=== PATIENT | male | born 1975 | race Caucasian/White ===

== ENCOUNTER 2016-07-12 03:26 | Inpatient (IN) | payer MEDICARE, OTHER ==
[~2016-07-12] VITALS: Ht 172.7 cm; Wt 91.3 kg
[~2016-07-12 03:26] MED LIST: AMBI10TA PO; AMPH5CAP PO; DEPA500T2 PO; EFFE150C PO; EFFE75CA75 PO; FOLI1TAB2 PO; MELO15TA4 PO; TRAZ50TA4 PO; VITMTA PO; XANA0.5T PO
[2016-07-12] MEDS ORDERED: HALOPERIDOL 5 MG/ML VIAL (J1630) As Ordered ONE ×2 (03:27→09:00)
[2016-07-12] MEDS ORDERED: diphenhydrAMINE INJ 50MG/ML VIAL (J1200) As Ordered ONE ×2 (03:27→09:00)
[2016-07-12] MEDS ORDERED: OLANZapine INTRAMUSCULAR 10 MG VIAL (S0166) As Ordered ONE (04:44)
[2016-07-12 05:33] LABS: MEAN CORPUSCULAR HEMOGLOBIN 29.4 pg (27.0-33.0); MEAN CORPUSCULAR VOLUME 91.7 fl (80.0-96.0); RED CELL DISTRIBUTION WIDTH 12.4 % (11.5-14.5); WHITE BLOOD COUNT 12.2 K/mm3 (4.0-10.0)
[2016-07-12 05:56] LABS: ALBUMIN 4.2 GM/DL (3.2-5.2); ALBUMIN/GLOBULIN RATIO 1.02 (1.00-1.93); ALKALINE PHOSPHATASE 118 U/L (45-117); ALT/SGPT 37 U/L (12-78); ANION GAP 13 MEQ/L (8-16); AST/SGOT 19 U/L (15-37); BILIRUBIN,DIRECT 0.1 MG/DL (0.0-0.2); BILIRUBIN,TOTAL 0.4 MG/DL (0.2-1.0); BLOOD UREA NITROGEN 7 MG/DL (7-18); CALCIUM LEVEL 8.9 MG/DL (8.5-10.1); CARBON DIOXIDE LEVEL 24 MEQ/L (21-32); CHLORIDE LEVEL 105 MEQ/L (98-107); CREATININE FOR GFR 0.72 MG/DL (0.70-1.30); GLOMERULAR FILTRATION RATE > 60.0 (>60); GLUCOSE, FASTING 122 MG/DL (70-105); POTASSIUM SERUM 3.7 MEQ/L (3.5-5.1); SODIUM LEVEL 142 MEQ/L (136-145); TOTAL PROTEIN 8.3 GM/DL (6.4-8.2)
[2016-07-12 17:02] LABS: AMPHETAMINES LEVEL URINE NEGATIVE (NEGATIVE); BENZODIAZEPINES URINE NEGATIVE (NEGATIVE); COCAINE METABOLITE URINE NEGATIVE (NEGATIVE); CONTROL LINE INT CTR LINE PRESENT; METHADONE URINE NEGATIVE (NEGATIVE); OPIATES URINE NEGATIVE (NEGATIVE); TRICYCLIC ANTIDEPRESS URINE NEGATIVE (NEGATIVE)
[2016-07-12] MEDS ORDERED: traZODone 50 MG TAB PO PRN (17:45)
[2016-07-12] MEDS ORDERED: ACETAMINOPHEN TAB 650MG DOSE (2X325MG) PO PRN (17:45)
[2016-07-12] MEDS ORDERED: LORazepam 2 MG TAB PO PRN (17:45)
[2016-07-12] MEDS ORDERED: MOM 30ML SUSPENSION UDC PO PRN (17:45)
[2016-07-12] MEDS ORDERED: MAALOX 30 ML SUSP *UDC PO PRN (17:45)
--- NOTE | 2016-07-12 18:05 | EDDOCDS ---
Physician Documentation [facility] Name: Curt Hardwick Age: 40 yrs Sex: Male : 1975 Arrival Date: 07/12/2016 Time: 03:26 Bed OBSERVATION Private MD: Disposition: 07/12/16 17:57 Hospitalization ordered by Julian Salcido for Inpatient Admission. Preliminary diagnosis is Bipolar disorder. - Bed requested for Admit. - Status is Inpatient Admission. mk4 - Condition is Stable. - Problem is new. - Symptoms have improved. Historical: - Allergies: no known allergies; - Home Meds: 1. Synthroid 125 mcg Oral tab 1 tab once daily (Last dose: 07/11/2016 06:00) 2. Effexor Oral 300 mg every morning (Last dose: 07/11/2016 09:00) 3. clonidine HCl 0.1 mg Oral tab 1 tab daily 4. lorazepam 1 mg Oral tab daily (Last dose: 07/11/2016 09:00) 5. [place] Carbonate 950 Oral 1 cap pm (Last dose: 07/11/2016 21:00) 6. clonidine HCl 0.3 mg Oral tab 1 tab nightly (Last dose: 07/11/2016 21:00) 7. lorazepam 1 mg Oral tab 1 tab nightly (Last dose: 07/11/2016 21:00) - Social history: No barriers to communication noted, The patient speaks fluent Yi, Smoking status: Patient uses tobacco products, current some day smoker. - Family history: Not pertinent. - : The pt / caregiver states he / she is not on anticoagulants. Home medication list is obtained from family members. - Exposure Risk Screening:: None identified. Vital Signs: 07/12 03:40 slm 04:10 BP 129 / 80; Pulse 92; Resp 18; Pulse Ox 97% ; Pain 0/10; slm 04:25 BP 124 / 77; Pulse 92; Resp 16; Temp 97.6(TE); Pulse Ox 99% on R/A; slm 04:40 BP 137 / 90; Pulse 90; Resp 16; Pulse Ox 97% ; slm 04:58 BP 133 / 78; Pulse 94; Resp 16; Pulse Ox 97% ; slm 05:10 BP 122 / 71; Pulse 82; Resp 18; Pulse Ox 94% ; slm 05:26 BP 119 / 69; Pulse 69; Resp 18; Pulse Ox 93% ; slm 05:34 BP 136 / 87; Pulse 67; Resp 18; Pulse Ox 100% on R/A; slm 09:05 BP 184 / 101; Pulse 118; Resp 22; mk4 09:15 BP 162 / 100; Pulse 117; Resp 18; Pulse Ox 100% on R/A; mk4 09:30 BP 144 / 94; Pulse 102; Resp 18; Pulse Ox 100% ; mk4 09:43 BP 158 / 96; Pulse 102; Resp 16; Pulse Ox 100% on R/A; mk4 10:00 BP 140 / 92; Pulse 99; Resp 18; Pulse Ox 100% ; mk4 10:15 BP 154 / 93; Pulse 99; Resp 16; Temp 97.8(T); Pulse Ox 100% ; mk4 10:30 BP 149 / 96; Pulse 106; Resp 18; Pulse Ox 100% ; mk4 10:45 BP 155 / 96; Pulse 95; Resp 18; Pulse Ox 100% on R/A; mk4 11:00 BP 160 / 63; Pulse 95; Resp 18; Pulse Ox 99% on R/A; mk4 11:15 BP 175 / 83; Pulse 106; Resp 18; Pulse Ox 100% on R/A; mk4 11:30 BP 141 / 97; Pulse 99; Resp 18; Pulse Ox 99% on R/A; mk4 11:45 BP 144 / 91; Pulse 99; Resp 18; mk4 12:00 BP 146 / 93; Pulse 89; Resp 18; Pulse Ox 99% on R/A; mk4 12:15 BP 199 / 93; Pulse 86; Resp 18; Pulse Ox 100% on R/A; mk4 12:30 BP 164 / 92; Pulse 92; Resp 18; Pulse Ox 100% on R/A; mk4 12:45 BP 159 / 92; Pulse 87; Resp 18; Pulse Ox 100% on R/A; mk4 13:00 BP 143 / 95; Pulse 87; Pulse Ox 99% on R/A; mk4 13:15 BP 144 / 93; Pulse 76; Resp 18; Pulse Ox 100% on R/A; mk4 13:30 BP 169 / 99; Pulse 86; Resp 18; Pulse Ox 99% on R/A; mk4 14:15 BP 162 / 100; Pulse 88; Resp 18; Pulse Ox 99% on R/A; mk4 17:43 BP 138 / 86; Pulse 92; Resp 20; Temp 97.2(T); Pulse Ox 99% on R/A; mk4 03:40 pt combative refused slm MDM: 03:32 -Haloperidol Lactate 5 mg IM once ordered. sls1 03:33 diphenhydrAMINE 50 mg IM once ordered. sls1 04:17 Consult PFS/PSA/Shower Room Attendant ordered. cs11 04:17 Consult PFS/PSA/Shower Room Attendant: Patient's case requires discussion with on-call cs11 Psychiatrist ordered. 04:17 PSA/PFS to call Nursing Performance Test Consultant, to enter patient data on [facility] Safe Act if patient cs11 involuntarily admitted or transferred for SI or HI ordered. 04:17 Confirm accurate psychiatric medication list and times of last dosage ordered. cs11 04:17 Detain Pt Until Medically/PFS Cleared ordered. cs11 04:17 Restraints, Adult: Mechanical - 4 points up to 1 hr (poses imminent danger of harming cs11 others). May use manual restraints to secure restraint devices. Pt. monitoring per RN policy. ordered. 04:18 Acetaminophen Level Ordered. EDMS 04:19 Basic Metabolic Profile Ordered. EDMS 04:19 Complete Blood Count Ordered. EDMS 04:19 Drug Eval Toxicology ED Only Ordered. EDMS 04:19 Ethyl Alcohol (ethanol) Ordered. EDMS 04:19 Liver Profile Ordered. EDMS 04:19 Salicylate Level Ordered. EDMS 04:19 Thyroid Stimulating Hormone Ordered. EDMS 04:19 Valproic Acid (depakote) Ordered. EDMS 04:19 Ammonia ([place] Tube on Ice, Not [place]) Ordered. EDMS 04:25 OLANZapine 10 mg IM once ordered. cs11 07:52 Financial registration complete. hs2 07:53 [facility] Payment Agreement was scanned into [employer] and attached to record. hs2 08:54 PSA/PFS to call Nursing Performance Test Consultant, to enter patient data on [place] Safe Act if patient mk4 involuntarily admitted or transferred for SI or HI complete. 09:05 diphenhydrAMINE 25 mg IM once ordered. mk4 09:05 -Haloperidol Lactate 5 mg IM once ordered. mk4 09:06 Restraints, Adult: Chemical - Meds as ordered (poses imminent danger of harming fg others). May use manual restraints to ensure safe admin. of meds. Pt. monitoring for min. of 2 hrs per RN policy. ordered. 09:06 Restraints, Adult: Mechanical - 4 points up to 1 hr (poses imminent danger of fg interfering with medical interventions). May use manual restraints to secure restraint devices. Pt. monitoring per RN policy. ordered. 10:23 Consult PFS/PSA/Shower Room Attendant: Patient's case requires discussion with on-call mk4 Psychiatrist complete. 10:23 Consult PFS/PSA/Shower Room Attendant complete. mk4 11:08 REGULAR DIET PLASTIC CHUA+DIET ordered. EDMS 16:35 Haloperidol 5 mg IVP once; until desired response ordered. fg 16:35 diphenhydrAMINE 25 mg IM once ordered. fg 17:15 REGULAR DIET PLASTIC CHUA+DIET ordered. EDMS 17:49 REGULAR DIET ordered. EDMS 17:51 Admit to IMHU: ordered. EDMS 17:54 [facility] Legal paperwork was scanned into [employer] and attached to record. ml4 Administered Medications: 03:34 Drug: -Haloperidol Lactate 5 mg [haloperidol lactate 5 mg/mL injection solution (1 mL)] sls1 Route: IM; Site: left vastus lateralis; 03:34 Drug: diphenhydrAMINE 50 mg [diphenhydramine 50 mg/mL injection solution (1 mL)] Route: sls1 IM; Site: right vastus lateralis; 04:43 Follow up: Response: No significant change. [facility] 04:53 Drug: OLANZapine 10 mg Route: IM; Site: left vastus lateralis; [facility] 05:28 Follow up: Response: Anxiety is improved [facility] 09:05 Drug: diphenhydrAMINE 25 mg [diphenhydramine 50 mg/mL injection solution (0.5 mL)] mk4 Route: IM; Site: right vastus lateralis; 09:05 Drug: -Haloperidol Lactate 5 mg [haloperidol lactate 5 mg/mL injection solution (1 mL)] mk4 Route: IM; Site: right vastus lateralis; Signatures: Dispatcher [employer] EDMS Cathy Lopez, PSA PSA ml4 Melissa Alberto, RN RN sls1 Vj Norman, DO cs11 Yulia Chavez LPN LPN m Selam Turner RN RN mk4 Keke Nunez MD MD fg Lili Guerrero, Reg Reg hs2 The chart was reviewed and I authenticate all verbal orders and agree with the evaluation and treatment provided.Corrections: (The following items were deleted from the chart) 09:06 09:06 Restraints, Adult: Mechanical - 4 points up to 1 hr (poses imminent danger of mk4 self-harm). May use manual restraints to secure restraint devices. Pt. monitoring per RN policy. ordered. mk4 Attachments: 07:53 [facility] Payment Agreement hs2 MTDD
--- NOTE | 2016-07-12 18:06 | EDDOCDS ---
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 nn1 Mental Health Triage Level: Level 2: The patient displays active suicidal ideations. The patient displays active homicidal ideations. The patient was brought to the ED for evaluation because of a legal pickup order. The patient is visibly agitated and appears to be potentially at risk. Adult Sepsis Screening: The patient does not have new or worsening altered mentation. Patient's respiratory rate is less than 22. Systolic blood pressure is greater than 100. Patient has a qSOFA score of 0- Negative Sepsis Screen. Suicide/Homicide risk assessment- The patient admits to and/or has been reported to be having suicidal ideations. Status: Patient is not a radiology services manager or dependent. Transition of care: patient was not received from another setting of care. 03:36 Acuity: [place] Level 3 nn1 03:36 Method Of Arrival: Police Car nn1 Triage Assessment: 03:39 General: Appears distressed, unkempt, Behavior is restless, combative, uncooperative. nn1 Pain: Unable to use pain scale. Patient appears agitated, restless. Pt Declines HIV testing. The patient is triaged at the bedside. See Assessment in Nurses Notes section of ED record. Neurological: Level of Consciousness is awake, alert, obeys commands, Oriented to person, place, time, Moves all extremities. Facial symmetry appears normal. Respiratory: Airway is patent Respiratory effort is even, unlabored, Respiratory pattern is regular. GI: Abdomen is non- distended. Derm: Skin is pink, warm & dry. Historical: - Allergies: no known allergies; - Home Meds: 1. Synthroid 125 mcg Oral tab 1 tab once daily (Last dose: 07/11/2016 06:00) 2. Effexor Oral 300 mg every morning (Last dose: 07/11/2016 09:00) 3. clonidine HCl 0.1 mg Oral tab 1 tab daily 4. lorazepam 1 mg Oral tab daily (Last dose: 07/11/2016 09:00) 5. [place] Carbonate 950 Oral 1 cap pm (Last dose: 07/11/2016 21:00) 6. clonidine HCl 0.3 mg Oral tab 1 tab nightly (Last dose: 07/11/2016 21:00) 7. lorazepam 1 mg Oral tab 1 tab nightly (Last dose: 07/11/2016 21:00) - Social history: No barriers to communication noted, The patient speaks fluent Korean, Smoking status: Patient uses tobacco products, current some day smoker. - Family history: Not pertinent. - : The pt / caregiver states he / she is not on anticoagulants. Home medication list is obtained from family members. - Exposure Risk Screening:: None identified. Screenin:41 Screening information is obtained from the patient. Fall risk: No risks identified. mk4 Assistance ADL's: requires no assistance with activities of daily living. Abuse/DV Screen: The patient / caregiver reports he/she is: not in a situation that causes fear, pain or injury. Nutritional screening: No deficits noted. home support is adequate. 17:07 Advance Directives: Currently, there is no health care proxy. There is no active DNR mk4 order. There is no living will. There is no Power of Tar Distributor Operator. Advance directive information has not previously been placed in an [facility] medical record. Further advance directive information is declined. Assessment: 03:33 General: Pt agitated not cooperating, threatening and yelling at staff, attempting to sls1 bite staff, provider aware and pt medicated per order, police at bedside. 03:41 General: Patient yelling and threatening PD and staff, patient redirected several nn1 times, limitations set. Patient continued to be uncooperative. . 03:58 General: Appears Behavior is agitated, restless, combative, uncooperative. General: pt slm resistive to care remains combative refused v/s at this time . Respiratory: Airway is patent Respiratory effort is even, unlabored. 05:36 General: Appears in no apparent distress, Behavior is drowsy. General: pt appears slm drowsy awakes to verbal stimuli meds with effect at this time . will cont to monitor . Respiratory: Airway is patent Respiratory effort is even, unlabored. 06:15 General: Appears in no apparent distress, comfortable, to be sleeping. Behavior is slm drowsy. General: pt asleep at this time will cont to monitor security observing . Neurological: Respiratory: Airway is patent Respiratory effort is even, unlabored. 07:09 General: Appears in no apparent distress, comfortable, to be sleeping. Behavior is slm drowsy, quiet. General: pt remains asleep security observing safety maintained . Respiratory: Airway is patent Respiratory effort is even, unlabored. Derm: Skin is pink, warm & dry. 08:02 General: Appears in no apparent distress, comfortable, to be sleeping. Behavior is slm quiet. General: security observing . Respiratory: Airway is patent Respiratory effort is even, unlabored, Respiratory pattern is regular. 08:53 General: Appears in no apparent distress, comfortable, to be sleeping. mk4 09:00 General: Appears distressed, pt jumped off stretcher, went into bathroom and stripped mk4 naked, came out of bathroom yelling and swung his arm with closed fist at security aide, code 25 called and pt put back in restraints. 09:29 General: Appears Behavior is agitated, singing loudly , inaapropriate songs and mk4 laughing maniacally,. Respiratory: Airway is patent Respiratory effort is even, unlabored, Respiratory pattern is regular. 10:17 General: Appears in no apparent distress, to be sleeping. awakens when i enter thr room mk4 and starts singing loudly and laughing then returns to sleep. 10:54 General: Appears singing Joanna zarco , and told myself he was going to "slit my mk4 face wide open " remains in 4 pt restraints resisting pulse oximeter. 12:30 General: Appears in no apparent distress, to be sleeping. mk4 13:30 General: Appears Behavior is agitated. Respiratory: Airway is patent Respiratory effort mk4 is even, unlabored, Respiratory pattern is regular. 14:31 General: Appears in no apparent distress, leg restraints removed,pt calm . mk4 15:07 General: restraints d/c. mk4 15:40 General: Appears in no apparent distress, comfortable, Behavior is cooperative, mk4 sleeping on side . Respiratory: Airway is patent Respiratory effort is even, unlabored, Respiratory pattern is regular. 16:00 General: Appears pt agitated came out of room refused initially to return to room mk4 security called and pt eventually returned to room, drinking young linda. 17:06 General: Appears in no apparent distress, comfortable, Behavior is cooperative. mk4 Respiratory: Airway is patent Respiratory effort is even, unlabored, Respiratory pattern is regular. 17:35 General: Appears in no apparent distress, comfortable, Behavior is cooperative. mk4 17:43 General: Appears in no apparent distress, to be sleeping. cooperative when awakened for mk4 vital signs . Mental Health Eval: 03:46 Referral Information: Evaluation referral is generated by a police agency: [facility] on cl 9.41.. The patient was referred for evaluation because Pt with bizarre/manic type behavior per spouse, religiously preoccupied, verbally aggressive. Pt has hx of Bipolar d/o and prior admissions to [facility], pt reportedly may have been drinking tonight as well. Pt agitated on arrival, verbally threatening to ED staff and Police, required IM meds and 4 pt. restraints.. 15:50 Mental health consult is initiated at 15:50. Status: . [facility] Behavioral ca Health: The patient is not an established patient of [facility] Behavioral Health. Subjective: Subjective: The patients chief complaint is Pt agitated upon presentation and required restraints. Was intoxicated and manic. Delusions are unknown, unable to evaluate. Patient's mood is anxious, elevated, hallucinations are unknown, unable to evaluate. Spoke with pt's regarding circumstances that required police transporting pt to ED last night. She reports pt has been decompensating since 07/01. Had emergency appt with his psychiatrist yesterday and it was recommended pt be given prn haldol and seroquel, po, per . She said pt refused to take these meds last night, however he did take his regular medications. Pt has not been sleeping or eating properly. She found him screaming at top of his lungs last night that he "felt good" and talking about a math problem he seemed to be fixated on, as well as [place] Don[place]. Later that night the found pt vomiting and 3 open wine bottles on floor. Pt had apparently broken the top off one of the bottles. Pt's feels he requires admission and does not feel he is safe to return home. 16:30 Mental Health history: alcohol abuse, depression, psychosis, sleep disturbance, Mental ca Health Admissions: most recently at [facility] 2014 Current Outpatient Mental Health Services: Psychiatrist / Agency: Rubina Barkley. Sees monthly. [phone]. Current living environment is Family / Home Support: Resides with supportive in own home. Patient presents to Emergency Department with the following symptoms within the past 2 weeks: alcohol abuse, delusions of grandeur, labile mood, poor impulse control, posttraumatic stress related to unknown. psychosis, sleep disturbance - insomnia. Substance abuse: Patient uses of alcohol. Mental status exam: Patients appearance is appropriate, Patient's behavior is agitated, bizarre, uncooperative, Speech is pressured. rapid. Affect is labile. Mood is angry. anxious. irritable. Hallucinations are unable to evaluate . Appetite is unable to evaluate Energy level is Restless Content of thought is paranoid Thought process is loose. Cognitive level is oriented to person, place, time and situation Patient's insight is poor. Judgement is poor. Rapport with interviewer is hostile. unable to evaluate for SI or HI. Disposition: Medically cleared for disposition by Vj Norman DO Psychiatric Consult is performed by phone with Dr Julian Salcido. [facility] Admission Criteria: The patient displays symptoms of severe psychiatric disorder resulting in disordered behavior and significant interference with his / her ability to maintain self care. Lucille. The patient requires continuous observation and/or control to protect self, others or property. The patient's care requires a multi-modal treatment plan under close supervision and coordination due to the complexity and severity of the patient's symptoms. The patient requires administration and monitoring of psychoactive medications by skilled medical providers due to the side effects of the psychoactive medications or significant dosage adjustments. Legal Status: Patient's legal status will be Emergency admission: . MD Safe Act: [facility] Safe Act is applicable to this patient. The patient poses a risk to self or other and the Nursing Intermediate Manager has been notified. He/She will enter the patient's data. DSM-V Differential Diagnosis: Bipolar II Disorder (F31.81) Current or most recent episode manic, Alcohol Intoxication. Insurance Pre-Certification: Not Required, Pt has Medicare and [employer]. Awaiting: transfer to [facility]. Vital Signs: 03:40 slm 04:10 BP 129 / 80; Pulse 92; Resp 18; Pulse Ox 97% ; Pain 0/10; slm 04:25 BP 124 / 77; Pulse 92; Resp 16; Temp 97.6(TE); Pulse Ox 99% on R/A; slm 04:40 BP 137 / 90; Pulse 90; Resp 16; Pulse Ox 97% ; slm 04:58 BP 133 / 78; Pulse 94; Resp 16; Pulse Ox 97% ; slm 05:10 BP 122 / 71; Pulse 82; Resp 18; Pulse Ox 94% ; slm 05:26 BP 119 / 69; Pulse 69; Resp 18; Pulse Ox 93% ; slm 05:34 BP 136 / 87; Pulse 67; Resp 18; Pulse Ox 100% on R/A; slm 09:05 BP 184 / 101; Pulse 118; Resp 22; mk4 09:15 BP 162 / 100; Pulse 117; Resp 18; Pulse Ox 100% on R/A; mk4 09:30 BP 144 / 94; Pulse 102; Resp 18; Pulse Ox 100% ; mk4 09:43 BP 158 / 96; Pulse 102; Resp 16; Pulse Ox 100% on R/A; mk4 10:00 BP 140 / 92; Pulse 99; Resp 18; Pulse Ox 100% ; mk4 10:15 BP 154 / 93; Pulse 99; Resp 16; Temp 97.8(T); Pulse Ox 100% ; mk4 10:30 BP 149 / 96; Pulse 106; Resp 18; Pulse Ox 100% ; mk4 10:45 BP 155 / 96; Pulse 95; Resp 18; Pulse Ox 100% on R/A; mk4 11:00 BP 160 / 63; Pulse 95; Resp 18; Pulse Ox 99% on R/A; mk4 11:15 BP 175 / 83; Pulse 106; Resp 18; Pulse Ox 100% on R/A; mk4 11:30 BP 141 / 97; Pulse 99; Resp 18; Pulse Ox 99% on R/A; mk4 11:45 BP 144 / 91; Pulse 99; Resp 18; mk4 12:00 BP 146 / 93; Pulse 89; Resp 18; Pulse Ox 99% on R/A; mk4 12:15 BP 199 / 93; Pulse 86; Resp 18; Pulse Ox 100% on R/A; mk4 12:30 BP 164 / 92; Pulse 92; Resp 18; Pulse Ox 100% on R/A; mk4 12:45 BP 159 / 92; Pulse 87; Resp 18; Pulse Ox 100% on R/A; mk4 13:00 BP 143 / 95; Pulse 87; Pulse Ox 99% on R/A; mk4 13:15 BP 144 / 93; Pulse 76; Resp 18; Pulse Ox 100% on R/A; mk4 13:30 BP 169 / 99; Pulse 86; Resp 18; Pulse Ox 99% on R/A; mk4 14:15 BP 162 / 100; Pulse 88; Resp 18; Pulse Ox 99% on R/A; mk4 17:43 BP 138 / 86; Pulse 92; Resp 20; Temp 97.2(T); Pulse Ox 99% on R/A; mk4 03:40 pt combative refused sl Vitals: 04:32 Log In time N/A- police car arrival. [facility] ED Course: 03:27 Patient visited by Nela Kessler. [facility] 03:27 Patient moved to Waiting [facility] 03:27 Patient moved to [address] 03:37 Triage Initiated nn1 03:44 Yulia Chavez LPN is Primary Nurse. [facility] 04:04 Patient visited by Jamar Choi. mas 04:04 Pt greeted and oriented to ED. Patient advised of names of staff involved in care, mas location of call ramirez, wait times and NPO status. Accompanied by Law Enforcement, Bed in low position. Call light in reach. Side rails up X2. Security observing. Door closed. Noise minimized. Moved to private room. Verbal reassurance given. Psych Safety Check: Location: Psych Room. Visual Assessment: agitated, uncooperative \\T\\ this time. 04:15 Patient visited by Yulia Chavez LPN. [facility] 04:17 Vj Norman DO is Attending Physician. cs11 04:17 Patient visited by Vj Norman DO. cs11 04:25 Patient moved to OBSERVATION cs11 04:44 Patient visited by Jamar Choi. mas 04:44 Property secured in secure belongings bag, Secure bag Number [id number], placed in ED safe.mas 05:00 Patient visited by Jamar Choi. mas 05:15 Patient visited by Jamar Choi. mas 05:23 No IV's were initiated during this patient's visit. No procedures done that require slm assistance. Labs drawn. (by ED staff). Sent per order to lab. 05:28 Ammonia ([place] Tube on Ice, Not [place]a [place]) Sent. slm 05:28 Valproic Acid (depakote) Sent. slm 05:28 Acetaminophen Level Sent. slm 05:28 Basic Metabolic Profile Sent. slm 05:28 Complete Blood Count Sent. slm 05:28 Drug Eval Toxicology ED Only Sent. slm 05:28 Ethyl Alcohol (ethanol) Sent. slm 05:28 Liver Profile Sent. slm 05:28 Salicylate Level Sent. slm 05:29 Thyroid Stimulating Hormone Sent. slm 05:37 Patient visited by Yulia Chavez LPN. slm 05:39 Patient visited by Jamar Choi. mas 05:45 Patient visited by Jamar Choi. mas 06:00 Patient visited by Jamar Choi. mas 06:15 Patient visited by Jamar Choi. mas 06:16 Patient visited by Yulia Chavez LPN. slm 06:30 Patient visited by Jamar Choi. mas 06:45 Patient visited by Jamar Choi. mas 07:05 Patient visited by Jamar Choi. mas 07:09 Primary Nurse role handed off by Yulia Chavez LPN mcp 07:09 Patient visited by Yulia Chavez LPN. slm 07:22 Patient visited by Indra Resendiz Security Aide. pjf 07:36 Patient visited by Indra Resendiz Security Aide. pjf 07:44 Patient visited by Indra Resendiz Security Aide. pjf 07:53 [facility] Payment Agreement was scanned into [employer] and attached to record. hs2 08:02 Patient visited by Yulia Chavez LPN. slm 08:06 Patient visited by Indra Resendiz Security Aide. pjf 08:29 Patient visited by Indra Resendiz Security Aide. pjf 08:45 Psych Safety Check: Location: Psych Room. Visual Assessment: Agitated, Combative. pjf 09:00 Psych Safety Check: Location: Psych Room. Visual Assessment: Restless, Medicated. pjf 09:14 Psych Safety Check: Location: Psych Room. Visual Assessment: Restless, Medicated. pjf 09:21 Patient visited by Ferendzo, Indra, Security Aide. pjf 09:39 Patient visited by Indra Resendiz Security Aide. pjf 10:01 Patient visited by Indra Resendiz Security Aide. pjf 10:22 Patient visited by Indra Resendiz Security Aide. pjf 10:35 Patient visited by Indra Resendiz Security Aide. pjf 10:54 Psych Safety Check: Location: Psych Room. Visual Assessment: Restless, Agitated. pjf 11:05 Psych Safety Check: Location: Psych Room. Visual Assessment: Restless, Agitated. pjf 11:17 Psych Safety Check: Location: Psych Room. Visual Assessment: Restless, Agitated. pjf 11:39 Psych Safety Check: Location: Psych Room. Visual Assessment: Restless, Agitated. pjf 12:34 Patient visited by Philip Gregory. rn1 12:45 Patient visited by Philip Gregory. rn1 12:59 Patient visited by Philip Gregory. rn1 13:35 Patient visited by Indra Resendiz Security Aide. pjf 13:50 Patient visited by Indra Resendiz Security Aidhilaria. pjf 14:19 Patient visited by Indra Resendiz Security Aidhilaria. pjf 14:37 Patient visited by Indra Resendiz Security Aidhilaria. pjf 14:45 Psych Safety Check: Location: Psych Room. Visual Assessment: Cooperative. pjf 15:00 Psych Safety Check: Location: Psych Room. Visual Assessment: Cooperative. pjf 15:15 Psych Safety Check: Location: Psych Room. Visual Assessment: Cooperative. pjf 15:30 Psych Safety Check: Location: Psych Room. Visual Assessment: Cooperative. pjf 15:40 Patient visited by Selam Turner RN. mk4 15:45 Psych Safety Check: Location: Psych Room. Visual Assessment: Cooperative. pjf 15:56 Patient visited by Indra Resendiz Security Aidhilaria. pjf 16:00 Psych Safety Check: Location: Psych Room. Visual Assessment: Agitated. pjf 16:27 Patient visited by Indra Resendiz Security Aidhilaria. pjf 17:07 The patient / caregiver is instructed regarding the plan of care and ED course. mk4 17:15 Patient visited by Indra Resendiz Security Aidhilaria. pjf 17:28 Patient visited by Indra Resendiz Security Aide. pjf 17:42 Patient visited by Indra Resendiz Security Aide. pjf 17:54 [facility] Legal paperwork was scanned into [employer] and attached to record. ml4 17:57 Julian Salcido is Hospitalizing Provider. fg Restraints: 03:40 Restraint order obtained from Vj Norman DO [facility] 03:40 Implementation: The following less restrictive methods were implemented: decreased stimuli, administered meds to decrease agitation, Restrained without trying less restrictive methods because pt was physically combative, assaulting staff and/or others, self destructive, disoriented and harmful to self, The patient was given an explanation of the restraint protocol, the criteria for removal, their patient rights, Restraints applied at 03:40 Patient was restrained with chemical restraint, 4 point restraints. 03:40 Notification of restraint use: ED physician, Charge Nurse. 03:40 Vital Signs: 03:40 Assessment: Respirations: Regular Skin Integrity: Intact Circulation: Unrestricted. ROM: ROM exercises are contraindicated at this time. Hygiene: contraindicated, Toileting: contraindicated, Hydration: contrainidicated, Food: Contraindicated, Mental Status: Aggressive, Agitated, Uncooperative, Behavioral Interventions: Reorientation, Consistent Limits Set, Medication interventions are provided, Decreased Environmental Stimuli, Educated re need for restraints. 03:55 Vital Signs: Pt Refuses [facility] 03:55 Assessment: Respirations: Regular Skin Integrity: Intact Circulation: Unrestricted. ROM: ROM exercises are contraindicated at this time. Hygiene: contraindicated, Toileting: contraindicated, Hydration: contrainidicated, Food: Contraindicated, Mental Status: Aggressive, Agitated, Uncooperative, Behavioral Interventions: Pt is encouraged to verbalize feelings, Educated re need for restraints, Education provided on behavioral conditions for release of restraints. 04:10 Vital Signs: [facility] 04:10 Assessment: Respirations: Regular Skin Integrity: Intact Circulation: Unrestricted. ROM: ROM exercises are contraindicated at this time. Hygiene: refused, Toileting: refused, Hydration: offered, refused, Food: refused, Mental Status: Alert, Aggressive, Agitated, Uncooperative, pt swearing at staff "FUCK YOU", Behavioral Interventions: Consistent Limits Set, Educated re need for restraints. 04:25 Vital Signs: [facility] 04:25 Assessment: Respirations: Regular Skin Integrity: Intact Circulation: Unrestricted. ROM: ROM exercises are contraindicated at this time. Hygiene: contraindicated, refused, Toileting: contraindicated, refused, Hydration: contrainidicated, refused, Food: refused, Mental Status: Agitated, Uncooperative, Behavioral Interventions: Reorientation, Consistent Limits Set, Pt is encouraged to verbalize feelings. 04:40 Vital Signs: [facility] 04:40 Assessment: Respirations: Regular Skin Integrity: Intact Circulation: Unrestricted. ROM: Rom exercises of extremities are performed with release of limb. Left Lower Extremity, Hygiene: contraindicated, Toileting: offered, refused, Hydration: offered, refused, Food: Contraindicated, Mental Status: Alert, Agitated, Uncooperative, Behavioral Interventions: Education provided on behavioral conditions for release of restraints. 04:58 Vital Signs: [facility] 04:58 Assessment: Respirations: Regular Skin Integrity: Intact Circulation: Unrestricted. ROM: Rom exercises of extremities are performed with release of limb. Right Lower Extremity, Hygiene: contraindicated, Toileting: refused, Hydration: offered, refused, Food: Contraindicated, Mental Status: Agitated, Uncooperative, Behavioral Interventions: Consistent Limits Set, Support/Comfort provided by staff, Decreased Environmental Stimuli, Educated re need for restraints, Education provided on behavioral conditions for release of restraints. 05:10 Vital Signs: [facility] 05:10 Assessment: Respirations: Regular Skin Integrity: Intact Circulation: Unrestricted. ROM: Rom exercises of extremities are performed with release of limb. Right Upper Extremity, Hygiene: refused, Toileting: refused, Hydration: contrainidicated, Food: Contraindicated, Mental Status: Sleeping, Behavioral Interventions: Educated re need for restraints, Education provided on behavioral conditions for release of restraints. 05:26 Vital Signs: [facility] 05:26 Restraints discontinued at 05:27 at the order of Vj Norman DO 05:34 Vital Signs: [facility] 09:00 Restraint order obtained from Keke Nunez MD mk4 09:00 Implementation: The following less restrictive methods were implemented: calming interaction with one-on-one intervention, decreased stimuli, administered meds to decrease agitation, The patient was given an explanation of Restraints applied at 09:05 Patient was restrained with chemical restraint, 4 point restraints. Restraints were applied because patient is a danger to self, danger to others, danger to staff. 09:00 Notification of restraint use: ED physician, Charge Nurse, Nurse Breaker Off, Intermediate Manager. 09:00 Vital Signs: 09:15 Assessment: Respirations: Skin Integrity: Intact Circulation: Unrestricted. Hygiene: mk4 contraindicated, Toileting: contraindicated, Hydration: offered, refused, Food: offered, refused, Mental Status: Alert, Behavioral Interventions: Reorientation, Educated re need for restraints. 09:30 Assessment: Respirations: Regular Skin Integrity: Intact Circulation: Unrestricted. mk4 ROM: ROM exercises are contraindicated at this time. Hygiene: contraindicated, Toileting: contraindicated, Hydration: contrainidicated, Mental Status: Alert, Agitated, Uncooperative, Behavioral Interventions: Reorientation. 10:00 Assessment: Respirations: Regular Skin Integrity: Intact Circulation: Unrestricted. mk4 ROM: ROM exercises are contraindicated at this time. Hydration: contrainidicated, Food: Contraindicated, Mental Status: Sleeping. 10:15 Assessment: Respirations: Regular Skin Integrity: Intact Circulation: Unrestricted. mk4 ROM: Rom exercises of extremities are performed with release of limb. Right Upper Extremity, Left Lower Extremity, Right Lower Extremity, Hygiene: contraindicated, Toileting: contraindicated, Hydration: contrainidicated, Food: Contraindicated, Mental Status: Alert, Agitated. 10:30 Assessment: Respirations: Regular Skin Integrity: Intact Circulation: Unrestricted. mk4 Mental Status: Alert, Aggressive, Uncooperative. 10:45 Assessment: Respirations: Regular Skin Integrity: Intact Circulation: Unrestricted. mk4 Mental Status: Alert, Aggressive, Uncooperative, Behavioral Interventions: 11:02 Assessment: Respirations: Regular Skin Integrity: Intact Circulation: Unrestricted. mk4 Mental Status: Alert, Agitated, Uncooperative. 11:30 Assessment: Respirations: Regular Skin Integrity: Intact Circulation: Unrestricted. mk4 Mental Status: Alert, singing songs, kicked pulse oximeter off toe. 11:45 Assessment: Respirations: Skin Integrity: Intact Circulation: Unrestricted. Mental mk4 Status: Alert, Uncooperative. 12:00 Assessment: Respirations: Regular Skin Integrity: Intact Circulation: Unrestricted. mk4 Toileting: offered, Hydration: contrainidicated, Food: Contraindicated, Mental Status: Agitated, Uncooperative, Behavioral Interventions: Decreased Environmental Stimuli, Education provided on behavioral conditions for release of restraints. 12:31 Assessment: Respirations: Regular Skin Integrity: Intact Circulation: Unrestricted. mk4 Toileting: offered, refused. 12:47 Assessment: Respirations: Regular Deep Skin Integrity: Intact Circulation: mk4 Unrestricted. Mental Status: Sleeping. 14:26 Assessment: Respirations: Regular Skin Integrity: Intact Circulation: Unrestricted. mk4 Mental Status: Alert. 14:26 Patient's both legsremoved from restraints. 15:05 Restraints discontinued at 14:45 mk4 Administered Medications: 03:34 Drug: -Haloperidol Lactate 5 mg [haloperidol lactate 5 mg/mL injection solution (1 mL)] sls1 Route: IM; Site: left vastus lateralis; 03:34 Drug: diphenhydrAMINE 50 mg [diphenhydramine 50 mg/mL injection solution (1 mL)] Route: sls1 IM; Site: right vastus lateralis; 04:43 Follow up: Response: No significant change. [facility] 04:53 Drug: OLANZapine 10 mg Route: IM; Site: left vastus lateralis; [facility] 05:28 Follow up: Response: Anxiety is improved [facility] 09:05 Drug: diphenhydrAMINE 25 mg [diphenhydramine 50 mg/mL injection solution (0.5 mL)] mk4 Route: IM; Site: right vastus lateralis; 09:05 Drug: -Haloperidol Lactate 5 mg [haloperidol lactate 5 mg/mL injection solution (1 mL)] mk4 Route: IM; Site: right vastus lateralis; Attachments: 17:54 [facility] Legal paperwork ml4 Order Results: Lab Order: Acetaminophen Level; SPEC'M 07/12/16 05:14 Test: ACETAMINOPHEN LEVEL; Value: < 2.0; Range: 10.0-30.0; Abnormal: Below low normal; Units: UG/ML; Status: F Lab Order: Basic Metabolic Profile; SPEC'M 07/12/16 05:14 Test: GLUCOSE, FASTING; Value: 122; Range: 70-105; Abnormal: Above high normal; Units: MG/DL; Status: F Test: BLOOD UREA NITROGEN; Value: 7; Range: 7-18; Units: MG/DL; Status: F Test: CREATININE FOR GFR; Value: 0.72; Range: 0.70-1.30; Units: MG/DL; Status: F Test: GLOMERULAR FILTRATION RATE; Value: > 60.0; Range: >60; Status: F Test: SODIUM LEVEL; Value: 142; Range: 136-145; Units: MEQ/L; Status: F Test: POTASSIUM SERUM; Value: 3.7; Range: 3.5-5.1; Units: MEQ/L; Status: F Test: CHLORIDE LEVEL; Value: 105; Range: 98-107; Units: MEQ/L; Status: F Test: CARBON DIOXIDE LEVEL; Value: 24; Range: 21-32; Units: MEQ/L; Status: F Test: ANION GAP; Value: 13; Range: 8-16; Units: MEQ/L; Status: F Test: CALCIUM LEVEL; Value: 8.9; Range: 8.5-10.1; Units: MG/DL; Status: F Test Note: ; Units are mL/min/1.73 m2 Chronic Kidney Disease Staging per NKF: Stage I & II GFR >=60 Normal to Mildly Decreased Stage III GFR 30-59 Moderately Decreased Stage IV GFR 15-29 Severely Decreased Stage V GFR <15 Very Little GFR Left ESRD GFR <15 on CONTRACT PROGRAMMER Lab Order: Complete Blood Count; SPEC'M 07/12/16 05:14 Test: WHITE BLOOD COUNT; Value: 12.2; Range: 4.0-10.0; Abnormal: Above high normal; Units: K/mm3; Status: F Test: RED BLOOD COUNT; Value: 5.03; Range: 4.30-6.10; Units: M/mm3; Status: F Test: HEMOGLOBIN; Value: 14.8; Range: 14.0-18.0; Units: g/dl; Status: F Test: HEMATOCRIT; Value: 46.1; Range: 42.0-52.0; Units: %; Status: F Test: MEAN CORPUSCULAR VOLUME; Value: 91.7; Range: 80.0-96.0; Units: fl; Status: F Test: MEAN CORPUSCULAR HEMOGLOBIN; Value: 29.4; Range: 27.0-33.0; Units: pg; Status: F Test: MEAN CORPUSCULAR HGB CONC; Value: 32.0; Range: 32.0-36.5; Units: g/dl; Status: F Test: RED CELL DISTRIBUTION WIDTH; Value: 12.4; Range: 11.5-14.5; Units: %; Status: F Test: PLATELET COUNT, AUTOMATED; Value: 324; Range: 150-450; Units: k/mm3; Status: F Lab Order: Drug Eval Toxicology ED Only; SPEC'M 07/12/16 16:44 Test: AMPHETAMINES LEVEL URINE; Value: NEGATIVE; Range: NEGATIVE; Status: F Test: BARBITURATES URINE; Value: NEGATIVE; Range: NEGATIVE; Status: F Test: BENZODIAZEPINES URINE; Value: NEGATIVE; Range: NEGATIVE; Status: F Test: CANNABINOIDS URINE; Value: POSITIVE; Range: NEGATIVE; Abnormal: Above high normal; Status: F Test: COCAINE METABOLITE URINE; Value: NEGATIVE; Range: NEGATIVE; Status: F Test: METHADONE URINE; Value: NEGATIVE; Range: NEGATIVE; Status: F Test: OPIATES URINE; Value: NEGATIVE; Range: NEGATIVE; Status: F Test: TRICYCLIC ANTIDEPRESS URINE; Value: NEGATIVE; Range: NEGATIVE; Status: F Test Note: ; FALSE POSITIVE RESULTS CAN BE CAUSED BY THE USE OF PANTOPRAZOLE (PROTONIX). Lab Order: Ethyl Alcohol (ethanol); SPEC'M 07/12/16 05:14 Test: ETHYL ALCOHOL (ETHANOL); Value: 0.160; Range: 0.000-0.010; Abnormal: Above high normal; Units: %; Status: F Lab Order: Liver Profile; SPEC'M 07/12/16 05:14 Test: AST/SGOT; Value: 19; Range: 15-37; Units: U/L; Status: F Test: ALT/SGPT; Value: 37; Range: 12-78; Units: U/L; Status: F Test: ALKALINE PHOSPHATASE; Value: 118; Range: 45-117; Abnormal: Above high normal; Units: U/L; Status: F Test: BILIRUBIN,TOTAL; Value: 0.4; Range: 0.2-1.0; Units: MG/DL; Status: F Test: BILIRUBIN,DIRECT; Value: 0.1; Range: 0.0-0.2; Units: MG/DL; Status: F Test: TOTAL PROTEIN; Value: 8.3; Range: 6.4-8.2; Abnormal: Above high normal; Units: GM/DL; Status: F Test: ALBUMIN; Value: 4.2; Range: 3.2-5.2; Units: GM/DL; Status: F Test: ALBUMIN/GLOBULIN RATIO; Value: 1.02; Range: 1.00-1.93; Status: F Lab Order: Salicylate Level; SPEC'M 07/12/16 05:14 Test: SALICYLATE LEVEL; Value: 2.7; Range: 5.0-30.0; Abnormal: Below low normal; Units: MG/DL; Status: F Lab Order: Thyroid Stimulating Hormone; SPEC'M 07/12/16 05:14 Test: THYROID STIMULATING HORMONE; Value: 5.950; Range: 0.358-3.740; Abnormal: Above high normal; Units: uIU/ML; Status: F Lab Order: Valproic Acid (depakote); SPEC'M 07/12/16 05:14 Test: VALPROIC ACID (DEPAKOTE); Value: < 3.0; Range: 50.0-100.0; Abnormal: Below low normal; Units: UG/ML; Status: F Lab Order: Ammonia ([place] Tube on Ice, Not [place]); SPEC'M 07/12/16 05:14 Test: AMMONIA; Value: 63; Range: <32; Abnormal: Above high normal; Units: uMOL/L; Status: F Outcome: 15:41 Discharge Assessment: patient administered narcotics -. mk4 17:07 The following High Risk Discharge criteria are identified: None. Condition: good mk4 Condition: stable. No special radiology studies were completed. 17:57 Decision to Hospitalize by Provider. fg 18:04 Patient left the ED. 4 Signatures: Nidhi Hernandez, RN RN Puja Gomez, PSA PSA ca Morales Pablo, PSA PSA cl Martín, Indra, Security Aide Lopezf Cathy Lopez, PSA PSA ml4 Jamar Choi Shannon, RN RN sls1 Vj Norman, DO DO cs11 Yulia Chavez,Selam Fitzpatrick LPN, RN RN mk4 Nela Kessler Philip Leiva rn1 Zoltan AlmanzaRN RN nn1 Keke Nunez MD MD Lili Guerrero, Reg Reg hs2 Corrections: (The following items were deleted from the chart) 16:24 15:50 Subjective: ca ca 17:30 15:50 Subjective: The patients chief complaint is Pt agitated upon presentation and ca required restraints. Was intoxicated and manic. Delusions are unknown, unable to evaluate. Patient's mood is anxious, elevated, hallucinations are unknown, unable to evaluate. Spoke with pt's regarding circumstances that required police transporting pt to ED last night. She reports pt has been decompensating Subjective: The patients chief complaint is Pt agitated upon presentation and required restraints. Was intoxicated and manic. Delusions are unknown, unable to evaluate. Patient's mood is anxious, elevated, hallucinations are unknown, unable to evaluate. Spoke with pt's regarding circumstances that required police transporting pt to ED last night. She reports pt has been decompensating ca 17:51 17:43 General: Appears mk4 mk4 MTDD
[2016-07-12] MEDS ORDERED: HALOPERIDOL 5 MG TAB PO PRN (18:15)
[2016-07-12] MEDS: OLANZapine ORAL DISINTEGRATING TAB 5MG PO PRN (18:24)
[2016-07-12] MEDS ORDERED: CLON-412 PO ×2 (18:55)
[2016-07-12] MEDS ORDERED: SYNT125T PO (18:55)
[2016-07-12] MEDS ORDERED: LITH45TASA PO (18:55)
[2016-07-12] MEDS ORDERED: EFFE150C PO (18:55)
[2016-07-12] MEDS ORDERED: TEST200I14 IM (18:55)
[2016-07-12] MEDS ORDERED: LORA1TAB PO (18:55)
[2016-07-12 19:03] VITALS: BP 167/96
[2016-07-12 19:13] VITALS: BP 167/96
[2016-07-12] MEDS: QUEtiapine FUMARATE 100 MG TAB PO SCH (21:00)
[2016-07-12] MEDS: cloNIDine 0.1 MG TAB PO SCH (21:00)
[2016-07-12] MEDS: THIAMINE 100 MG TAB PO SCH (21:00)
[2016-07-13 06:31] VITALS: BP 161/87
[2016-07-13] MEDS: VENLAFAXINE **XR** 75MG CAPSULE PO SCH (08:20)
[2016-07-13] MEDS: FOLIC ACID 1 MG TAB PO SCH (08:20)
[2016-07-13] MEDS: THIAMINE 100 MG TAB PO SCH ×2 (08:20→21:08)
[2016-07-13] MEDS: cloNIDine 0.1 MG TAB PO SCH ×2 (08:21→21:08)
[2016-07-13] MEDS: MULTIVITAMINS/MINERALS THERAP 1 TAB PO SCH (08:21)
[2016-07-13 08:41] VITALS: BP 157/91
[2016-07-13] MEDS ORDERED: LEVOTHYROXINE 0.125 MG TAB (125 MCG) PO SCH (09:00)
--- NOTE | 2016-07-13 11:01 | HPEPDOC ---
Medical History and Physical Date of Admission Jul 12, 2016 at 18:05 History and Physical PCP: YANG Flores ATTENDING: Dr. Pj Alfredo HPI: 40yoM admitted to [facility] for bipolar disorder, being medically examined today. No acute medical complaints today. He states he does tend to pick skin of his scalp and he has a few lesions at the top of his scalp over they are scabbed and are not open. He has not had any skin infections. He has no other skin lesions. No rashes. Denies any fevers, chills, weakness, fatigue, BROWN, CP, SOB, cough, palpitations, abdominal pain, N/V/D or changes in bowel or bladder habits. 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 Retired from [employer] 01/17. Deployed twice to [place] and once [place]. Tobacco use: Denies ETOH: 6 drinks per week Illicit Drugs: Marijuana daily IV Drug Use: Denies Tattoos done unprofessionally: Denies FAMHX: Mother: Alive, diabetes Father: , brain aneurysm Siblings: Alive, well Children: None Unexpected deaths due to medical reasons: None. ROS: As noted in HPI, otherwise 11pt ROS of systems reviewed and unremarkable PE: GEN: 40yoM, appears stated age. Well-nourished, well developed. No acute distress. Alert and oriented x 3. Pleasant, interactive. HEENT: Normocephalic, atraumatic. Pupils are equal, round, and reactive to light. Extraocular movements are intact. No nystagmus appreciated. Sclera are nonicteric. Conjunctiva without injection. Nose midline. Nasal turbinates without bogginess. EACs both patent BL. TMs both visualized and duran with good cone of light, no bulging or erythema. No facial asymmetry. Moist mucous membranes. Dentition fair. Pharynx pink and moist, no cobblestoning. Neck supple , trachea midline. No lymphadenopathy or thyromegaly appreciated. CHEST: Regular rate and rhythm, +S1, +S2 LUNGS: Clear to auscultation bilaterally. No wheezes, rales, or rhonchi. Breathing appears symmetric and easy. Patient is speaking in full sentences. No accessory muscle use. ABD: Round, soft, non-tender, non-distended. +Bowel sounds throughout. No rebound or guarding. No costovertebral angle tenderness. EXT: Pulses 2+ bilaterally dorsalis pedis and radial. No lower extremity edema appreciated. SKIN: [place], dry, warm. Capillary refill <2sec. No rashes. NEURO: Alert and oriented x 3. Cranial nerves III-XII are intact. No focal deficits appreciated. EKG: Pending. A&P: 40yoM admitted to [facility] for bipolar disorder 1. Psych. Plan per Psychiatry. Obtain baseline EKG to assure the safety of psychiatric medications as they can prolong the QT interval. 2. Hypothyroidism. Continue supplementation. Patient states he has been compliant with his medication. TSH is noted to be elevated. Will recheck TFTs in a.m. 3. Leukocytosis. Patient is afebrile. Asymptomatic. Possibly stress response. Recheck CBC in a.m. 4. [facility] 5. Substance use. Per psychiatry. 6. Elevated glucose. Unclear if patient was fasting for sample. Recheck fasting glucose in a.m. 7. Scalp lesions. Patient admits to picking and itching his scalp frequently. He states he does this when he is anxious and nervous. Continue to keep the areas clean and dry. Apply bacitracin twice a day as needed. Vital Signs Vital Signs Label Value Date Time Patient Temperature 99.5 degrees F 07/13/16 0631 Temperature Source Tympanic 07/13/16 0631 Pulse 78 07/13/16 0631 Respiratory Rate 18 bpm 07/13/16 0631 Blood Pressure Assessment 161/87 (111) 07/13/16 0631 Blood Pressure Assessment 157/91 07/13/16 0841 Laboratory Data Labs 24H Laboratory Tests 2 07/12/16 16:44: Urine Amphetamine Level NEGATIVE, Urine Benzodiazepines Screen NEGATIVE, Urine Cannabinoids POSITIVEH, Urine Cocaine Metabolite NEGATIVE, Urine Opiates Screen NEGATIVE, Urine Barbiturates, Qualitative NEGATIVE, Urine Methadone Screen NEGATIVE, Urine Tricyclic Antidepressants NEGATIVE Home Medications Scheduled (Testosterone Cypionate) 200 Mg/Ml Inj 100 MG IM QWEEK . Clonidine Hydrochloride (Clonidine HCl) 0.1 Mg Tab 0.1 MG PO DAILY . Clonidine Hydrochloride (Clonidine HCl) 0.1 Mg Tab 0.3 MG PO QHS . Levothyroxine Sodium (Synthroid) 125 Mcg Tab 125 MCG PO DAILY HYPOTHYROID Jayton Carbonate (Jayton Carbonate ER) 450 Mg Tabcr 900 MG PO QHS . Venlafaxine Hydrochloride (Effexor Xr) 150 Mg Cap 300 MG PO DAILY DEPRESSION Scheduled PRN Lorazepam (Lorazepam) 1 Mg Tab 1 MG PO BID PRN PRN ANXIETY Allergies Coded Allergies: No Known Allergies (Verified Allergy, Unknown, 06/08/05) Jennifer James Jul 13, 2016 11:01
[2016-07-13] MEDS ORDERED: BACITRACIN OINT 30GM TOP PRN (11:15)
[2016-07-13] MEDS: LEVOTHYROXINE 0.125 MG TAB (125 MCG) PO SCH (16:13)
[2016-07-13 18:27] VITALS: BP 124/73
[2016-07-13 19:40] VITALS: BP 124/73
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
[2016-07-13] MEDS: QUEtiapine FUMARATE 100 MG TAB PO SCH (21:09)
[2016-07-13] MEDS: LITHIUM CARBONATE 450 MG **CR** TAB PO SCH (21:09)
[2016-07-14] MEDS: LEVOTHYROXINE 0.125 MG TAB (125 MCG) PO SCH (06:32)
[2016-07-14 06:52] VITALS: BP 148/82
[2016-07-14 06:52] LABS: MEAN CORPUSCULAR HEMOGLOBIN 29.7 pg (27.0-33.0); MEAN CORPUSCULAR HGB CONC 32.5 g/dl (32.0-36.5); MEAN CORPUSCULAR VOLUME 91.6 fl (80.0-96.0); RED CELL DISTRIBUTION WIDTH 13.2 % (11.5-14.5); WHITE BLOOD COUNT 11.7 K/mm3 (4.0-10.0)
[2016-07-14 07:20] LABS: ANION GAP 9 MEQ/L (8-16); BLOOD UREA NITROGEN 12 MG/DL (7-18); CALCIUM LEVEL 9.4 MG/DL (8.5-10.1); CARBON DIOXIDE LEVEL 26 MEQ/L (21-32); CHLORIDE LEVEL 107 MEQ/L (98-107); CREATININE FOR GFR 0.91 MG/DL (0.70-1.30); GLOMERULAR FILTRATION RATE > 60.0 (>60); GLUCOSE, FASTING 100 MG/DL (70-105); POTASSIUM SERUM 3.8 MEQ/L (3.5-5.1); SODIUM LEVEL 142 MEQ/L (136-145); T UPTAKE 33 % (33-40); THYROXINE (T4) 8.5 UG/DL (4.5-12.0)
[2016-07-14] MEDS: VENLAFAXINE **XR** 75MG CAPSULE PO SCH (09:03)
[2016-07-14] MEDS: NICOTINE 14 MG/24 HR TRANSDERMAL TD SCH (09:03)
[2016-07-14] MEDS: THIAMINE 100 MG TAB PO SCH ×2 (09:03→20:41)
[2016-07-14] MEDS: MULTIVITAMINS/MINERALS THERAP 1 TAB PO SCH (09:03)
[2016-07-14] MEDS: cloNIDine 0.1 MG TAB PO SCH ×2 (09:03→20:42)
[2016-07-14] MEDS: FOLIC ACID 1 MG TAB PO SCH (09:03)
--- NOTE | 2016-07-14 09:44 | IPNPDOC ---
Text Note Date of Service The patient was seen on 07/14/16 at 09:35. NOTE Called by RN about elevated TSH. TSH elevated on 07/12, repeat on 07/14, showed increase with normal free T4. Patient on Synthroid Please note a free T4 should of been added on 07/12 to see if adjustment to Synthroid is needed. No adjustment for Synthroid needed given Free T4 is normal. Repeat thyroid profile in 3-4 weeks and adjust Synthroid accordingly. Repeating Thyroid function prior to that will not be reflective of the effect of the Synthroid. Thank you. VS,Raheel, I+O VS, Germáne, I+O Laboratory Tests 07/14/16 06:33 Calcium Level 9.4, Red Blood Count 4.77, Mean Corpuscular Volume 91.6, Mean Corpuscular Hemoglobin 29.7, Mean Corpuscular Hemoglobin Concent 32.5, Red Cell Distribution Width 13.2 Vital Signs Date Time Temp Pulse Resp B/P Pulse Ox O2 Delivery O2 Flow Rate FiO2 07/14/16 09:03 148/82 07/14/16 08:47 Room Air 07/14/16 06:52 96.1 100 16 07/12/16 19:03 97 JOHNNIE DEL CID MD Jul 14, 2016 09:43
[2016-07-14 10:31] VITALS: BP 148/82
--- NOTE | 2016-07-14 14:58 | ECGEPIP ---
Stationary ECG Study [facility] Test Date: 2016-07-13 Pat Name: LORRAINE CHAMBERS Department: Room: [place] [address] Gender: M Sustainability Officer: BLANCA : 1975 Requested By: Jennifer James Order Number: [id number] Reading MD: Sean Brewster Measurements Intervals [place] Rate: 68 P: 42 [place]: 151 QRS: 24 QRSD: 96 T: 55 QT: 410 QTc: 437 Interpretive Statements SINUS RHYTHM NONSPECIFIC T-WAVE ABNORMALITY MINIMAL CHANGE SINCE 04/08/15 Electronically Signed On 07-14-2016 14:58:06 EST by Sean Brewster
[2016-07-14 18:00] VITALS: BP 146/79
--- NOTE | 2016-07-14 19:06 | EDDOCDS ---
Physician Documentation [facility] Name: Curt Hardwick Age: 40 yrs Sex: Male : 1975 Arrival Date: 07/12/2016 Time: 03:26 Bed OBSERVATION Private MD: Disposition: 07/12/16 17:57 Hospitalization ordered by Julian Salcido for Inpatient Admission. Preliminary diagnosis is Bipolar disorder. - Bed requested for Admit. - Status is Inpatient Admission. mk4 - Condition is Stable. - Problem is new. - Symptoms have improved. Historical: - Allergies: no known allergies; - Home Meds: 1. Synthroid 125 mcg Oral tab 1 tab once daily (Last dose: 07/11/2016 06:00) 2. Effexor Oral 300 mg every morning (Last dose: 07/11/2016 09:00) 3. clonidine HCl 0.1 mg Oral tab 1 tab daily 4. lorazepam 1 mg Oral tab daily (Last dose: 07/11/2016 09:00) 5. [place] Carbonate 950 Oral 1 cap pm (Last dose: 07/11/2016 21:00) 6. clonidine HCl 0.3 mg Oral tab 1 tab nightly (Last dose: 07/11/2016 21:00) 7. lorazepam 1 mg Oral tab 1 tab nightly (Last dose: 07/11/2016 21:00) - Social history: No barriers to communication noted, The patient speaks fluent Spanish, Smoking status: Patient uses tobacco products, current some day smoker. - Family history: Not pertinent. - : The pt / caregiver states he / she is not on anticoagulants. Home medication list is obtained from family members. - Exposure Risk Screening:: None identified. Vital Signs: 07/12 03:40 slm 04:10 BP 129 / 80; Pulse 92; Resp 18; Pulse Ox 97% ; Pain 0/10; slm 04:25 BP 124 / 77; Pulse 92; Resp 16; Temp 97.6(TE); Pulse Ox 99% on R/A; slm 04:40 BP 137 / 90; Pulse 90; Resp 16; Pulse Ox 97% ; slm 04:58 BP 133 / 78; Pulse 94; Resp 16; Pulse Ox 97% ; slm 05:10 BP 122 / 71; Pulse 82; Resp 18; Pulse Ox 94% ; slm 05:26 BP 119 / 69; Pulse 69; Resp 18; Pulse Ox 93% ; slm 05:34 BP 136 / 87; Pulse 67; Resp 18; Pulse Ox 100% on R/A; slm 09:05 BP 184 / 101; Pulse 118; Resp 22; mk4 09:15 BP 162 / 100; Pulse 117; Resp 18; Pulse Ox 100% on R/A; mk4 09:30 BP 144 / 94; Pulse 102; Resp 18; Pulse Ox 100% ; mk4 09:43 BP 158 / 96; Pulse 102; Resp 16; Pulse Ox 100% on R/A; mk4 10:00 BP 140 / 92; Pulse 99; Resp 18; Pulse Ox 100% ; mk4 10:15 BP 154 / 93; Pulse 99; Resp 16; Temp 97.8(T); Pulse Ox 100% ; mk4 10:30 BP 149 / 96; Pulse 106; Resp 18; Pulse Ox 100% ; mk4 10:45 BP 155 / 96; Pulse 95; Resp 18; Pulse Ox 100% on R/A; mk4 11:00 BP 160 / 63; Pulse 95; Resp 18; Pulse Ox 99% on R/A; mk4 11:15 BP 175 / 83; Pulse 106; Resp 18; Pulse Ox 100% on R/A; mk4 11:30 BP 141 / 97; Pulse 99; Resp 18; Pulse Ox 99% on R/A; mk4 11:45 BP 144 / 91; Pulse 99; Resp 18; mk4 12:00 BP 146 / 93; Pulse 89; Resp 18; Pulse Ox 99% on R/A; mk4 12:15 BP 199 / 93; Pulse 86; Resp 18; Pulse Ox 100% on R/A; mk4 12:30 BP 164 / 92; Pulse 92; Resp 18; Pulse Ox 100% on R/A; mk4 12:45 BP 159 / 92; Pulse 87; Resp 18; Pulse Ox 100% on R/A; mk4 13:00 BP 143 / 95; Pulse 87; Pulse Ox 99% on R/A; mk4 13:15 BP 144 / 93; Pulse 76; Resp 18; Pulse Ox 100% on R/A; mk4 13:30 BP 169 / 99; Pulse 86; Resp 18; Pulse Ox 99% on R/A; mk4 14:15 BP 162 / 100; Pulse 88; Resp 18; Pulse Ox 99% on R/A; mk4 17:43 BP 138 / 86; Pulse 92; Resp 20; Temp 97.2(T); Pulse Ox 99% on R/A; mk4 03:40 pt combative refused slm MDM: 03:32 -Haloperidol Lactate 5 mg IM once ordered. sls1 03:33 diphenhydrAMINE 50 mg IM once ordered. sls1 04:17 Consult PFS/PSA/Surgical Services Asst ordered. cs11 04:17 Consult PFS/PSA/Surgical Services Asst: Patient's case requires discussion with on-call cs11 Psychiatrist ordered. 04:17 PSA/PFS to call Nursing Outpatient Therapist, to enter patient data on [facility] Safe Act if patient cs11 involuntarily admitted or transferred for SI or HI ordered. 04:17 Confirm accurate psychiatric medication list and times of last dosage ordered. cs11 04:17 Detain Pt Until Medically/PFS Cleared ordered. cs11 04:17 Restraints, Adult: Mechanical - 4 points up to 1 hr (poses imminent danger of harming cs11 others). May use manual restraints to secure restraint devices. Pt. monitoring per RN policy. ordered. 04:18 Acetaminophen Level Ordered. EDMS 04:19 Basic Metabolic Profile Ordered. EDMS 04:19 Complete Blood Count Ordered. EDMS 04:19 Drug Eval Toxicology ED Only Ordered. EDMS 04:19 Ethyl Alcohol (ethanol) Ordered. EDMS 04:19 Liver Profile Ordered. EDMS 04:19 Salicylate Level Ordered. EDMS 04:19 Thyroid Stimulating Hormone Ordered. EDMS 04:19 Valproic Acid (depakote) Ordered. EDMS 04:19 Ammonia ([place] Tube on Ice, Not [place]) Ordered. EDMS 04:25 OLANZapine 10 mg IM once ordered. cs11 07:52 Financial registration complete. hs2 07:53 [facility] Payment Agreement was scanned into [employer] and attached to record. hs2 08:54 PSA/PFS to call Nursing Outpatient Therapist, to enter patient data on [place] Safe Act if patient mk4 involuntarily admitted or transferred for SI or HI complete. 09:05 diphenhydrAMINE 25 mg IM once ordered. mk4 09:05 -Haloperidol Lactate 5 mg IM once ordered. mk4 09:06 Restraints, Adult: Chemical - Meds as ordered (poses imminent danger of harming fg others). May use manual restraints to ensure safe admin. of meds. Pt. monitoring for min. of 2 hrs per RN policy. ordered. 09:06 Restraints, Adult: Mechanical - 4 points up to 1 hr (poses imminent danger of fg interfering with medical interventions). May use manual restraints to secure restraint devices. Pt. monitoring per RN policy. ordered. 10:23 Consult PFS/PSA/Surgical Services Asst: Patient's case requires discussion with on-call mk4 Psychiatrist complete. 10:23 Consult PFS/PSA/Surgical Services Asst complete. mk4 11:08 REGULAR DIET PLASTIC CHUA+DIET ordered. EDMS 16:35 Haloperidol 5 mg IVP once; until desired response ordered. fg 16:35 diphenhydrAMINE 25 mg IM once ordered. fg 17:15 REGULAR DIET PLASTIC CHUA+DIET ordered. EDMS 17:49 REGULAR DIET ordered. EDMS 17:51 Admit to IMHU: ordered. EDMS 17:54 [facility] Legal paperwork was scanned into [employer] and attached to record. ml4 07/13 07:43 T-Sheet-- Draft Copy was scanned into [employer] and attached to record. gb Administered Medications: 07/12 03:34 Drug: -Haloperidol Lactate 5 mg [haloperidol lactate 5 mg/mL injection solution (1 mL)] sls1 Route: IM; Site: left vastus lateralis; 03:34 Drug: diphenhydrAMINE 50 mg [diphenhydramine 50 mg/mL injection solution (1 mL)] Route: sls1 IM; Site: right vastus lateralis; 04:43 Follow up: Response: No significant change. [facility] 04:53 Drug: OLANZapine 10 mg Route: IM; Site: left vastus lateralis; [facility] 05:28 Follow up: Response: Anxiety is improved [facility] 09:05 Drug: diphenhydrAMINE 25 mg [diphenhydramine 50 mg/mL injection solution (0.5 mL)] mk4 Route: IM; Site: right vastus lateralis; 09:05 Drug: -Haloperidol Lactate 5 mg [haloperidol lactate 5 mg/mL injection solution (1 mL)] mk4 Route: IM; Site: right vastus lateralis; Signatures: Dispatcher [employer] EDMS Tammy Vieira, Reg Reg gb Cathy Lopez, PSA PSA ml4 Melissa Alberto RN RN sls1 Vj Norman DO DO cs11 Yulia Chavez LPN SENIOR BI DEVELOPER Selam Ramirez RN RN mk4 Keke Nunez MD MD fg Stanton, Hillary, Reg Reg hs2 The chart was reviewed and I authenticate all verbal orders and agree with the evaluation and treatment provided.Corrections: (The following items were deleted from the chart) 09:06 09:06 Restraints, Adult: Mechanical - 4 points up to 1 hr (poses imminent danger of mk4 self-harm). May use manual restraints to secure restraint devices. Pt. monitoring per RN policy. ordered. mk4 Attachments: 07:53 [facility] Payment Agreement hs2 07/13 07:43 T-Sheet-- Draft Copy gb Chart Complete MTDD
--- NOTE | 2016-07-14 19:06 | EDDOCDS ---
Nurse's Notes [facility] Name: Curt Hardwick Age: 40 yrs Sex: Male : 1975 Arrival Date: 07/12/2016 Time: 03:26 Bed OBSERVATION Private MD: Diagnosis: Bipolar disorder Presentation: 07/12 03:36 Presenting complaint: PD reports hop picker due to lucille and possible threats of suicide. nn1 Mental Health Triage Level: Level 2: The patient displays active suicidal ideations. The patient displays active homicidal ideations. The patient was brought to the ED for evaluation because of a legal pickup order. The patient is visibly agitated and appears to be potentially at risk. Adult Sepsis Screening: The patient does not have new or worsening altered mentation. Patient's respiratory rate is less than 22. Systolic blood pressure is greater than 100. Patient has a qSOFA score of 0- Negative Sepsis Screen. Suicide/Homicide risk assessment- The patient admits to and/or has been reported to be having suicidal ideations. Status: Patient is not a manager support services or dependent. Transition of care: patient was not received from another setting of care. 03:36 Acuity: [place] Level 3 nn1 03:36 Method Of Arrival: Police Car nn1 Triage Assessment: 03:39 General: Appears distressed, unkempt, Behavior is restless, combative, uncooperative. nn1 Pain: Unable to use pain scale. Patient appears agitated, restless. Pt Declines HIV testing. The patient is triaged at the bedside. See Assessment in Nurses Notes section of ED record. Neurological: Level of Consciousness is awake, alert, obeys commands, Oriented to person, place, time, Moves all extremities. Facial symmetry appears normal. Respiratory: Airway is patent Respiratory effort is even, unlabored, Respiratory pattern is regular. GI: Abdomen is non- distended. Derm: Skin is pink, warm & dry. Historical: - Allergies: no known allergies; - Home Meds: 1. Synthroid 125 mcg Oral tab 1 tab once daily (Last dose: 07/11/2016 06:00) 2. Effexor Oral 300 mg every morning (Last dose: 07/11/2016 09:00) 3. clonidine HCl 0.1 mg Oral tab 1 tab daily 4. lorazepam 1 mg Oral tab daily (Last dose: 07/11/2016 09:00) 5. [place] Carbonate 950 Oral 1 cap pm (Last dose: 07/11/2016 21:00) 6. clonidine HCl 0.3 mg Oral tab 1 tab nightly (Last dose: 07/11/2016 21:00) 7. lorazepam 1 mg Oral tab 1 tab nightly (Last dose: 07/11/2016 21:00) - Social history: No barriers to communication noted, The patient speaks fluent German, Smoking status: Patient uses tobacco products, current some day smoker. - Family history: Not pertinent. - : The pt / caregiver states he / she is not on anticoagulants. Home medication list is obtained from family members. - Exposure Risk Screening:: None identified. Screenin:41 Screening information is obtained from the patient. Fall risk: No risks identified. mk4 Assistance ADL's: requires no assistance with activities of daily living. Abuse/DV Screen: The patient / caregiver reports he/she is: not in a situation that causes fear, pain or injury. Nutritional screening: No deficits noted. home support is adequate. 17:07 Advance Directives: Currently, there is no health care proxy. There is no active DNR mk4 order. There is no living will. There is no Power of Public Safety Police. Advance directive information has not previously been placed in an [facility] medical record. Further advance directive information is declined. Assessment: 03:33 General: Pt agitated not cooperating, threatening and yelling at staff, attempting to sls1 bite staff, provider aware and pt medicated per order, police at bedside. 03:41 General: Patient yelling and threatening PD and staff, patient redirected several nn1 times, limitations set. Patient continued to be uncooperative. . 03:58 General: Appears Behavior is agitated, restless, combative, uncooperative. General: pt slm resistive to care remains combative refused v/s at this time . Respiratory: Airway is patent Respiratory effort is even, unlabored. 05:36 General: Appears in no apparent distress, Behavior is drowsy. General: pt appears slm drowsy awakes to verbal stimuli meds with effect at this time . will cont to monitor . Respiratory: Airway is patent Respiratory effort is even, unlabored. 06:15 General: Appears in no apparent distress, comfortable, to be sleeping. Behavior is slm drowsy. General: pt asleep at this time will cont to monitor security observing . Neurological: Respiratory: Airway is patent Respiratory effort is even, unlabored. 07:09 General: Appears in no apparent distress, comfortable, to be sleeping. Behavior is slm drowsy, quiet. General: pt remains asleep security observing safety maintained . Respiratory: Airway is patent Respiratory effort is even, unlabored. Derm: Skin is pink, warm & dry. 08:02 General: Appears in no apparent distress, comfortable, to be sleeping. Behavior is slm quiet. General: security observing . Respiratory: Airway is patent Respiratory effort is even, unlabored, Respiratory pattern is regular. 08:53 General: Appears in no apparent distress, comfortable, to be sleeping. mk4 09:00 General: Appears distressed, pt jumped off stretcher, went into bathroom and stripped mk4 naked, came out of bathroom yelling and swung his arm with closed fist at security aide, code 25 called and pt put back in restraints. 09:29 General: Appears Behavior is agitated, singing loudly , inaapropriate songs and mk4 laughing maniacally,. Respiratory: Airway is patent Respiratory effort is even, unlabored, Respiratory pattern is regular. 10:17 General: Appears in no apparent distress, to be sleeping. awakens when i enter thr room mk4 and starts singing loudly and laughing then returns to sleep. 10:54 General: Appears singing Joanna zarco , and told myself he was going to "slit my mk4 face wide open " remains in 4 pt restraints resisting pulse oximeter. 12:30 General: Appears in no apparent distress, to be sleeping. mk4 13:30 General: Appears Behavior is agitated. Respiratory: Airway is patent Respiratory effort mk4 is even, unlabored, Respiratory pattern is regular. 14:31 General: Appears in no apparent distress, leg restraints removed,pt calm . mk4 15:07 General: restraints d/c. mk4 15:40 General: Appears in no apparent distress, comfortable, Behavior is cooperative, mk4 sleeping on side . Respiratory: Airway is patent Respiratory effort is even, unlabored, Respiratory pattern is regular. 16:00 General: Appears pt agitated came out of room refused initially to return to room mk4 security called and pt eventually returned to room, drinking young linda. 17:06 General: Appears in no apparent distress, comfortable, Behavior is cooperative. mk4 Respiratory: Airway is patent Respiratory effort is even, unlabored, Respiratory pattern is regular. 17:35 General: Appears in no apparent distress, comfortable, Behavior is cooperative. mk4 17:43 General: Appears in no apparent distress, to be sleeping. cooperative when awakened for mk4 vital signs . Mental Health Eval: 03:46 Referral Information: Evaluation referral is generated by a police agency: [facility] on cl 9.41.. The patient was referred for evaluation because Pt with bizarre/manic type behavior per spouse, religiously preoccupied, verbally aggressive. Pt has hx of Bipolar d/o and prior admissions to [facility], pt reportedly may have been drinking tonight as well. Pt agitated on arrival, verbally threatening to ED staff and Police, required IM meds and 4 pt. restraints.. 15:50 Mental health consult is initiated at 15:50. Status: . [facility] Behavioral ca Health: The patient is not an established patient of [facility] Behavioral Health. Subjective: Subjective: The patients chief complaint is Pt agitated upon presentation and required restraints. Was intoxicated and manic. Delusions are unknown, unable to evaluate. Patient's mood is anxious, elevated, hallucinations are unknown, unable to evaluate. Spoke with pt's regarding circumstances that required police transporting pt to ED last night. She reports pt has been decompensating since 07/01. Had emergency appt with his psychiatrist yesterday and it was recommended pt be given prn haldol and seroquel, po, per . She said pt refused to take these meds last night, however he did take his regular medications. Pt has not been sleeping or eating properly. She found him screaming at top of his lungs last night that he "felt good" and talking about a math problem he seemed to be fixated on, as well as [place]. Later that night the found pt vomiting and 3 open wine bottles on floor. Pt had apparently broken the top off one of the bottles. Pt's feels he requires admission and does not feel he is safe to return home. 16:30 Mental Health history: alcohol abuse, depression, psychosis, sleep disturbance, Mental ca Health Admissions: most recently at [facility] 2014 Current Outpatient Mental Health Services: Psychiatrist / Agency: Rubina Barkley. Sees monthly. [phone]. Current living environment is Family / Home Support: Resides with supportive in own home. Patient presents to Emergency Department with the following symptoms within the past 2 weeks: alcohol abuse, delusions of grandeur, labile mood, poor impulse control, posttraumatic stress related to unknown. psychosis, sleep disturbance - insomnia. Substance abuse: Patient uses of alcohol. Mental status exam: Patients appearance is appropriate, Patient's behavior is agitated, bizarre, uncooperative, Speech is pressured. rapid. Affect is labile. Mood is angry. anxious. irritable. Hallucinations are unable to evaluate . Appetite is unable to evaluate Energy level is Restless Content of thought is paranoid Thought process is loose. Cognitive level is oriented to person, place, time and situation Patient's insight is poor. Judgement is poor. Rapport with interviewer is hostile. unable to evaluate for SI or HI. Disposition: Medically cleared for disposition by Vj Norman DO Psychiatric Consult is performed by phone with Dr Julian Salcido. [facility] Admission Criteria: The patient displays symptoms of severe psychiatric disorder resulting in disordered behavior and significant interference with his / her ability to maintain self care. Lucille. The patient requires continuous observation and/or control to protect self, others or property. The patient's care requires a multi-modal treatment plan under close supervision and coordination due to the complexity and severity of the patient's symptoms. The patient requires administration and monitoring of psychoactive medications by skilled medical providers due to the side effects of the psychoactive medications or significant dosage adjustments. Legal Status: Patient's legal status will be Emergency admission: . [place] Safe Act: [place] Safe Act is applicable to this patient. The patient poses a risk to self or other and the Nursing Garment Tag Stringer has been notified. He/She will enter the patient's data. DSM-V Differential Diagnosis: Bipolar II Disorder (F31.81) Current or most recent episode manic, Alcohol Intoxication. Insurance Pre-Certification: Not Required, Pt has Medicare and [employer]. Awaiting: transfer to [facility]. Vital Signs: 03:40 slm 04:10 BP 129 / 80; Pulse 92; Resp 18; Pulse Ox 97% ; Pain 0/10; slm 04:25 BP 124 / 77; Pulse 92; Resp 16; Temp 97.6(TE); Pulse Ox 99% on R/A; slm 04:40 BP 137 / 90; Pulse 90; Resp 16; Pulse Ox 97% ; slm 04:58 BP 133 / 78; Pulse 94; Resp 16; Pulse Ox 97% ; slm 05:10 BP 122 / 71; Pulse 82; Resp 18; Pulse Ox 94% ; slm 05:26 BP 119 / 69; Pulse 69; Resp 18; Pulse Ox 93% ; slm 05:34 BP 136 / 87; Pulse 67; Resp 18; Pulse Ox 100% on R/A; slm 09:05 BP 184 / 101; Pulse 118; Resp 22; mk4 09:15 BP 162 / 100; Pulse 117; Resp 18; Pulse Ox 100% on R/A; mk4 09:30 BP 144 / 94; Pulse 102; Resp 18; Pulse Ox 100% ; mk4 09:43 BP 158 / 96; Pulse 102; Resp 16; Pulse Ox 100% on R/A; mk4 10:00 BP 140 / 92; Pulse 99; Resp 18; Pulse Ox 100% ; mk4 10:15 BP 154 / 93; Pulse 99; Resp 16; Temp 97.8(T); Pulse Ox 100% ; mk4 10:30 BP 149 / 96; Pulse 106; Resp 18; Pulse Ox 100% ; mk4 10:45 BP 155 / 96; Pulse 95; Resp 18; Pulse Ox 100% on R/A; mk4 11:00 BP 160 / 63; Pulse 95; Resp 18; Pulse Ox 99% on R/A; mk4 11:15 BP 175 / 83; Pulse 106; Resp 18; Pulse Ox 100% on R/A; mk4 11:30 BP 141 / 97; Pulse 99; Resp 18; Pulse Ox 99% on R/A; mk4 11:45 BP 144 / 91; Pulse 99; Resp 18; mk4 12:00 BP 146 / 93; Pulse 89; Resp 18; Pulse Ox 99% on R/A; mk4 12:15 BP 199 / 93; Pulse 86; Resp 18; Pulse Ox 100% on R/A; mk4 12:30 BP 164 / 92; Pulse 92; Resp 18; Pulse Ox 100% on R/A; mk4 12:45 BP 159 / 92; Pulse 87; Resp 18; Pulse Ox 100% on R/A; mk4 13:00 BP 143 / 95; Pulse 87; Pulse Ox 99% on R/A; mk4 13:15 BP 144 / 93; Pulse 76; Resp 18; Pulse Ox 100% on R/A; mk4 13:30 BP 169 / 99; Pulse 86; Resp 18; Pulse Ox 99% on R/A; mk4 14:15 BP 162 / 100; Pulse 88; Resp 18; Pulse Ox 99% on R/A; mk4 17:43 BP 138 / 86; Pulse 92; Resp 20; Temp 97.2(T); Pulse Ox 99% on R/A; mk4 03:40 pt combative refused sl Vitals: 04:32 Log In time N/A- police car arrival. [facility] ED Course: 03:27 Patient visited by Nela Kessler. [facility] 03:27 Patient moved to Waiting [facility] 03:27 Patient moved to [address] 03:37 Triage Initiated nn1 03:44 Yulia Chavez LPN is Primary Nurse. [facility] 04:04 Patient visited by Jamar Choi. mas 04:04 Pt greeted and oriented to ED. Patient advised of names of staff involved in care, mas location of call ramirez, wait times and NPO status. Accompanied by Law Enforcement, Bed in low position. Call light in reach. Side rails up X2. Security observing. Door closed. Noise minimized. Moved to private room. Verbal reassurance given. Psych Safety Check: Location: Psych Room. Visual Assessment: agitated, uncooperative \\T\\ this time. 04:15 Patient visited by Yulia Chavez LPN. [facility] 04:17 Vj Norman DO is Attending Physician. cs11 04:17 Patient visited by Vj Norman DO. cs11 04:25 Patient moved to OBSERVATION cs11 04:44 Patient visited by Jamar Choi. mas 04:44 Property secured in secure belongings bag, Secure bag Number [id number], placed in ED safe.mas 05:00 Patient visited by Jamar Choi. mas 05:15 Patient visited by Jamar Choi. mas 05:23 No IV's were initiated during this patient's visit. No procedures done that require slm assistance. Labs drawn. (by ED staff). Sent per order to lab. 05:28 Ammonia ([place] Tube on Ice, Not Pea Green) Sent. slm 05:28 Valproic Acid (depakote) Sent. slm 05:28 Acetaminophen Level Sent. slm 05:28 Basic Metabolic Profile Sent. slm 05:28 Complete Blood Count Sent. slm 05:28 Drug Eval Toxicology ED Only Sent. slm 05:28 Ethyl Alcohol (ethanol) Sent. slm 05:28 Liver Profile Sent. slm 05:28 Salicylate Level Sent. slm 05:29 Thyroid Stimulating Hormone Sent. slm 05:37 Patient visited by Yulia Chavez LPN. slm 05:39 Patient visited by Jamar Choi. mas 05:45 Patient visited by Jamar Choi. mas 06:00 Patient visited by Jamar Choi. mas 06:15 Patient visited by Jamar Choi. mas 06:16 Patient visited by Yulia Chavez LPN. slm 06:30 Patient visited by Jamar Choi. mas 06:45 Patient visited by Jamar Choi. mas 07:05 Patient visited by Jamar Choi. mas 07:09 Primary Nurse role handed off by Yulia Chavez LPN mcp 07:09 Patient visited by Yulia Chavez LPN. slm 07:22 Patient visited by Indra Resendiz Security Aide. pjf 07:36 Patient visited by Indra Resendiz Security Aide. pjf 07:44 Patient visited by Indra Resendiz Security Aide. pjf 07:53 [facility] Payment Agreement was scanned into Txt4 and attached to record. hs2 08:02 Patient visited by Yulia Chavez LPN. slm 08:06 Patient visited by Indra Resendiz Security Aide. pjf 08:29 Patient visited by Indra Resendiz Security Aide. pjf 08:45 Psych Safety Check: Location: Psych Room. Visual Assessment: Agitated, Combative. pjf 09:00 Psych Safety Check: Location: Psych Room. Visual Assessment: Restless, Medicated. pjf 09:14 Psych Safety Check: Location: Psych Room. Visual Assessment: Restless, Medicated. pjf 09:21 Patient visited by Ferendzo, Indra, Security Aide. pjf 09:39 Patient visited by Indra Resendiz Security Aide. pjf 10:01 Patient visited by Indra Resendiz Security Aide. pjf 10:22 Patient visited by Indra Resendiz Security Aide. pjf 10:35 Patient visited by Indra Resendiz Security Aide. pjf 10:54 Psych Safety Check: Location: Psych Room. Visual Assessment: Restless, Agitated. pjf 11:05 Psych Safety Check: Location: Psych Room. Visual Assessment: Restless, Agitated. pjf 11:17 Psych Safety Check: Location: Psych Room. Visual Assessment: Restless, Agitated. pjf 11:39 Psych Safety Check: Location: Psych Room. Visual Assessment: Restless, Agitated. pjf 12:34 Patient visited by Philip Gregory. rn1 12:45 Patient visited by Philip Gregory. rn1 12:59 Patient visited by Philip Gregory. rn1 13:35 Patient visited by Indra Resendiz Security Aide. pjf 13:50 Patient visited by Indra Resendiz Security Aidhilaria. pjf 14:19 Patient visited by Indra Resendiz Security Aidhilaria. pjf 14:37 Patient visited by Indra Resendiz Security Aidhilaria. pjf 14:45 Psych Safety Check: Location: Psych Room. Visual Assessment: Cooperative. pjf 15:00 Psych Safety Check: Location: Psych Room. Visual Assessment: Cooperative. pjf 15:15 Psych Safety Check: Location: Psych Room. Visual Assessment: Cooperative. pjf 15:30 Psych Safety Check: Location: Psych Room. Visual Assessment: Cooperative. pjf 15:40 Patient visited by Selam Turner RN. mk4 15:45 Psych Safety Check: Location: Psych Room. Visual Assessment: Cooperative. pjf 15:56 Patient visited by Indra Resendiz Security Aidhilaria. pjf 16:00 Psych Safety Check: Location: Psych Room. Visual Assessment: Agitated. pjf 16:27 Patient visited by Indra Resendiz Security Aidhilaria. pjf 17:07 The patient / caregiver is instructed regarding the plan of care and ED course. mk4 17:15 Patient visited by Indra Resendiz Security Aidhilaria. pjf 17:28 Patient visited by Indra Resendiz Security Aide. pjf 17:42 Patient visited by Indra Resendiz Security Aide. pjf 17:54 [facility] Legal paperwork was scanned into Txt4 and attached to record. ml4 17:57 Julian Salcido is Hospitalizing Provider. fg 07/13 07:43 T-Sheet-- Draft Copy was scanned into Txt4 and attached to record. gb Restraints: 07/12 03:40 Restraint order obtained from Vj Norman DO [facility] Implementation: The following less restrictive methods were implemented: decreased stimuli, administered meds to decrease agitation, Restrained without trying less restrictive methods because pt was physically combative, assaulting staff and/or others, self destructive, disoriented and harmful to self, The patient was given an explanation of the restraint protocol, the criteria for removal, their patient rights, Restraints applied at 03:40 Patient was restrained with chemical restraint, 4 point restraints. Notification of restraint use: ED physician, Charge Nurse. Vital Signs: Assessment: Respirations: Regular Skin Integrity: Intact Circulation: Unrestricted. ROM: ROM exercises are contraindicated at this time. Hygiene: contraindicated, Toileting: contraindicated, Hydration: contrainidicated, Food: Contraindicated, Mental Status: Aggressive, Agitated, Uncooperative, Behavioral Interventions: Reorientation, Consistent Limits Set, Medication interventions are provided, Decreased Environmental Stimuli, Educated re need for restraints. 03:55 Vital Signs: Pt Refuses sl 03:55 Assessment: Respirations: Regular Skin Integrity: Intact Circulation: Unrestricted. ROM: ROM exercises are contraindicated at this time. Hygiene: contraindicated, Toileting: contraindicated, Hydration: contrainidicated, Food: Contraindicated, Mental Status: Aggressive, Agitated, Uncooperative, Behavioral Interventions: Pt is encouraged to verbalize feelings, Educated re need for restraints, Education provided on behavioral conditions for release of restraints. 04:10 Vital Signs: [facility] 04:10 Assessment: Respirations: Regular Skin Integrity: Intact Circulation: Unrestricted. ROM: ROM exercises are contraindicated at this time. Hygiene: refused, Toileting: refused, Hydration: offered, refused, Food: refused, Mental Status: Alert, Aggressive, Agitated, Uncooperative, pt swearing at staff "FUCK YOU", Behavioral Interventions: Consistent Limits Set, Educated re need for restraints. 04:25 Vital Signs: [facility] 04:25 Assessment: Respirations: Regular Skin Integrity: Intact Circulation: Unrestricted. ROM: ROM exercises are contraindicated at this time. Hygiene: contraindicated, refused, Toileting: contraindicated, refused, Hydration: contrainidicated, refused, Food: refused, Mental Status: Agitated, Uncooperative, Behavioral Interventions: Reorientation, Consistent Limits Set, Pt is encouraged to verbalize feelings. 04:40 Vital Signs: [facility] 04:40 Assessment: Respirations: Regular Skin Integrity: Intact Circulation: Unrestricted. ROM: Rom exercises of extremities are performed with release of limb. Left Lower Extremity, Hygiene: contraindicated, Toileting: offered, refused, Hydration: offered, refused, Food: Contraindicated, Mental Status: Alert, Agitated, Uncooperative, Behavioral Interventions: Education provided on behavioral conditions for release of restraints. 04:58 Vital Signs: [facility] 04:58 Assessment: Respirations: Regular Skin Integrity: Intact Circulation: Unrestricted. ROM: Rom exercises of extremities are performed with release of limb. Right Lower Extremity, Hygiene: contraindicated, Toileting: refused, Hydration: offered, refused, Food: Contraindicated, Mental Status: Agitated, Uncooperative, Behavioral Interventions: Consistent Limits Set, Support/Comfort provided by staff, Decreased Environmental Stimuli, Educated re need for restraints, Education provided on behavioral conditions for release of restraints. 05:10 Vital Signs: [facility] 05:10 Assessment: Respirations: Regular Skin Integrity: Intact Circulation: Unrestricted. ROM: Rom exercises of extremities are performed with release of limb. Right Upper Extremity, Hygiene: refused, Toileting: refused, Hydration: contrainidicated, Food: Contraindicated, Mental Status: Sleeping, Behavioral Interventions: Educated re need for restraints, Education provided on behavioral conditions for release of restraints. 05:26 Vital Signs: [facility] 05:26 Restraints discontinued at 05:27 at the order of Vj Norman DO 05:34 Vital Signs: [facility] 09:00 Restraint order obtained from Keke Nunez MD mk4 09:00 Implementation: The following less restrictive methods were implemented: calming interaction with one-on-one intervention, decreased stimuli, administered meds to decrease agitation, The patient was given an explanation of Restraints applied at 09:05 Patient was restrained with chemical restraint, 4 point restraints. Restraints were applied because patient is a danger to self, danger to others, danger to staff. 09:00 Notification of restraint use: ED physician, Charge Nurse, Nurse Client Administrator, Garment Tag Stringer. 09:00 Vital Signs: 09:15 Assessment: Respirations: Skin Integrity: Intact Circulation: Unrestricted. Hygiene: mk4 contraindicated, Toileting: contraindicated, Hydration: offered, refused, Food: offered, refused, Mental Status: Alert, Behavioral Interventions: Reorientation, Educated re need for restraints. 09:30 Assessment: Respirations: Regular Skin Integrity: Intact Circulation: Unrestricted. mk4 ROM: ROM exercises are contraindicated at this time. Hygiene: contraindicated, Toileting: contraindicated, Hydration: contrainidicated, Mental Status: Alert, Agitated, Uncooperative, Behavioral Interventions: Reorientation. 10:00 Assessment: Respirations: Regular Skin Integrity: Intact Circulation: Unrestricted. mk4 ROM: ROM exercises are contraindicated at this time. Hydration: contrainidicated, Food: Contraindicated, Mental Status: Sleeping. 10:15 Assessment: Respirations: Regular Skin Integrity: Intact Circulation: Unrestricted. mk4 ROM: Rom exercises of extremities are performed with release of limb. Right Upper Extremity, Left Lower Extremity, Right Lower Extremity, Hygiene: contraindicated, Toileting: contraindicated, Hydration: contrainidicated, Food: Contraindicated, Mental Status: Alert, Agitated. 10:30 Assessment: Respirations: Regular Skin Integrity: Intact Circulation: Unrestricted. mk4 Mental Status: Alert, Aggressive, Uncooperative. 10:45 Assessment: Respirations: Regular Skin Integrity: Intact Circulation: Unrestricted. mk4 Mental Status: Alert, Aggressive, Uncooperative, Behavioral Interventions: 11:02 Assessment: Respirations: Regular Skin Integrity: Intact Circulation: Unrestricted. mk4 Mental Status: Alert, Agitated, Uncooperative. 11:30 Assessment: Respirations: Regular Skin Integrity: Intact Circulation: Unrestricted. mk4 Mental Status: Alert, singing songs, kicked pulse oximeter off toe. 11:45 Assessment: Respirations: Skin Integrity: Intact Circulation: Unrestricted. Mental mk4 Status: Alert, Uncooperative. 12:00 Assessment: Respirations: Regular Skin Integrity: Intact Circulation: Unrestricted. mk4 Toileting: offered, Hydration: contrainidicated, Food: Contraindicated, Mental Status: Agitated, Uncooperative, Behavioral Interventions: Decreased Environmental Stimuli, Education provided on behavioral conditions for release of restraints. 12:31 Assessment: Respirations: Regular Skin Integrity: Intact Circulation: Unrestricted. mk4 Toileting: offered, refused. 12:47 Assessment: Respirations: Regular Deep Skin Integrity: Intact Circulation: mk4 Unrestricted. Mental Status: Sleeping. 14:26 Assessment: Respirations: Regular Skin Integrity: Intact Circulation: Unrestricted. mk4 Mental Status: Alert. 14:26 Patient's both legsremoved from restraints. 15:05 Restraints discontinued at 14:45 mk4 Administered Medications: 03:34 Drug: -Haloperidol Lactate 5 mg [haloperidol lactate 5 mg/mL injection solution (1 mL)] sls1 Route: IM; Site: left vastus lateralis; 03:34 Drug: diphenhydrAMINE 50 mg [diphenhydramine 50 mg/mL injection solution (1 mL)] Route: sls1 IM; Site: right vastus lateralis; 04:43 Follow up: Response: No significant change. [facility] 04:53 Drug: OLANZapine 10 mg Route: IM; Site: left vastus lateralis; [facility] 05:28 Follow up: Response: Anxiety is improved [facility] 09:05 Drug: diphenhydrAMINE 25 mg [diphenhydramine 50 mg/mL injection solution (0.5 mL)] mk4 Route: IM; Site: right vastus lateralis; 09:05 Drug: -Haloperidol Lactate 5 mg [haloperidol lactate 5 mg/mL injection solution (1 mL)] mk4 Route: IM; Site: right vastus lateralis; Attachments: 17:54 [facility] Legal paperwork ml4 Order Results: Lab Order: Acetaminophen Level; SPEC'M 07/12/16 05:14 Test: ACETAMINOPHEN LEVEL; Value: < 2.0; Range: 10.0-30.0; Abnormal: Below low normal; Units: UG/ML; Status: F Lab Order: Basic Metabolic Profile; SPEC'M 07/12/16 05:14 Test: GLUCOSE, FASTING; Value: 122; Range: 70-105; Abnormal: Above high normal; Units: MG/DL; Status: F Test: BLOOD UREA NITROGEN; Value: 7; Range: 7-18; Units: MG/DL; Status: F Test: CREATININE FOR GFR; Value: 0.72; Range: 0.70-1.30; Units: MG/DL; Status: F Test: GLOMERULAR FILTRATION RATE; Value: > 60.0; Range: >60; Status: F Test: SODIUM LEVEL; Value: 142; Range: 136-145; Units: MEQ/L; Status: F Test: POTASSIUM SERUM; Value: 3.7; Range: 3.5-5.1; Units: MEQ/L; Status: F Test: CHLORIDE LEVEL; Value: 105; Range: 98-107; Units: MEQ/L; Status: F Test: CARBON DIOXIDE LEVEL; Value: 24; Range: 21-32; Units: MEQ/L; Status: F Test: ANION GAP; Value: 13; Range: 8-16; Units: MEQ/L; Status: F Test: CALCIUM LEVEL; Value: 8.9; Range: 8.5-10.1; Units: MG/DL; Status: F Test Note: ; Units are mL/min/1.73 m2 Chronic Kidney Disease Staging per NKF: Stage I & II GFR >=60 Normal to Mildly Decreased Stage III GFR 30-59 Moderately Decreased Stage IV GFR 15-29 Severely Decreased Stage V GFR <15 Very Little GFR Left ESRD GFR <15 on AIRCRAFT INSTRUMENT TESTER Lab Order: Complete Blood Count; [facility] 07/12/16 05:14 Test: WHITE BLOOD COUNT; Value: 12.2; Range: 4.0-10.0; Abnormal: Above high normal; Units: K/mm3; Status: F Test: RED BLOOD COUNT; Value: 5.03; Range: 4.30-6.10; Units: M/mm3; Status: F Test: HEMOGLOBIN; Value: 14.8; Range: 14.0-18.0; Units: g/dl; Status: F Test: HEMATOCRIT; Value: 46.1; Range: 42.0-52.0; Units: %; Status: F Test: MEAN CORPUSCULAR VOLUME; Value: 91.7; Range: 80.0-96.0; Units: fl; Status: F Test: MEAN CORPUSCULAR HEMOGLOBIN; Value: 29.4; Range: 27.0-33.0; Units: pg; Status: F Test: MEAN CORPUSCULAR HGB CONC; Value: 32.0; Range: 32.0-36.5; Units: g/dl; Status: F Test: RED CELL DISTRIBUTION WIDTH; Value: 12.4; Range: 11.5-14.5; Units: %; Status: F Test: PLATELET COUNT, AUTOMATED; Value: 324; Range: 150-450; Units: k/mm3; Status: F Lab Order: Drug Eval Toxicology ED Only; SPEC'M 07/12/16 16:44 Test: AMPHETAMINES LEVEL URINE; Value: NEGATIVE; Range: NEGATIVE; Status: F Test: BARBITURATES URINE; Value: NEGATIVE; Range: NEGATIVE; Status: F Test: BENZODIAZEPINES URINE; Value: NEGATIVE; Range: NEGATIVE; Status: F Test: CANNABINOIDS URINE; Value: POSITIVE; Range: NEGATIVE; Abnormal: Above high normal; Status: F Test: COCAINE METABOLITE URINE; Value: NEGATIVE; Range: NEGATIVE; Status: F Test: METHADONE URINE; Value: NEGATIVE; Range: NEGATIVE; Status: F Test: OPIATES URINE; Value: NEGATIVE; Range: NEGATIVE; Status: F Test: TRICYCLIC ANTIDEPRESS URINE; Value: NEGATIVE; Range: NEGATIVE; Status: F Test Note: ; FALSE POSITIVE RESULTS CAN BE CAUSED BY THE USE OF PANTOPRAZOLE (PROTONIX). Lab Order: Ethyl Alcohol (ethanol); SPEC'M 07/12/16 05:14 Test: ETHYL ALCOHOL (ETHANOL); Value: 0.160; Range: 0.000-0.010; Abnormal: Above high normal; Units: %; Status: F Lab Order: Liver Profile; SPEC'M 07/12/16 05:14 Test: AST/SGOT; Value: 19; Range: 15-37; Units: U/L; Status: F Test: ALT/SGPT; Value: 37; Range: 12-78; Units: U/L; Status: F Test: ALKALINE PHOSPHATASE; Value: 118; Range: 45-117; Abnormal: Above high normal; Units: U/L; Status: F Test: BILIRUBIN,TOTAL; Value: 0.4; Range: 0.2-1.0; Units: MG/DL; Status: F Test: BILIRUBIN,DIRECT; Value: 0.1; Range: 0.0-0.2; Units: MG/DL; Status: F Test: TOTAL PROTEIN; Value: 8.3; Range: 6.4-8.2; Abnormal: Above high normal; Units: GM/DL; Status: F Test: ALBUMIN; Value: 4.2; Range: 3.2-5.2; Units: GM/DL; Status: F Test: ALBUMIN/GLOBULIN RATIO; Value: 1.02; Range: 1.00-1.93; Status: F Lab Order: Salicylate Level; SPEC'M 07/12/16 05:14 Test: SALICYLATE LEVEL; Value: 2.7; Range: 5.0-30.0; Abnormal: Below low normal; Units: MG/DL; Status: F Lab Order: Thyroid Stimulating Hormone; SPEC'M 07/12/16 05:14 Test: THYROID STIMULATING HORMONE; Value: 5.950; Range: 0.358-3.740; Abnormal: Above high normal; Units: uIU/ML; Status: F Lab Order: Valproic Acid (depakote); SPEC'M 07/12/16 05:14 Test: VALPROIC ACID (DEPAKOTE); Value: < 3.0; Range: 50.0-100.0; Abnormal: Below low normal; Units: UG/ML; Status: F Lab Order: Ammonia ([place] Tube on Ice, Not Pea Green); SPEC'M 07/12/16 05:14 Test: AMMONIA; Value: 63; Range: <32; Abnormal: Above high normal; Units: uMOL/L; Status: F Outcome: 07/12 15:41 Discharge Assessment: patient administered narcotics -. mk4 17:07 The following High Risk Discharge criteria are identified: None. Condition: good mk4 Condition: stable. No special radiology studies were completed. 17:57 Decision to Hospitalize by Provider. fg 18:04 Patient left the ED. 4 Signatures: Nidhi Hernandez, RN RN Puja Gomez, PSA PSA ca Morales Pablo, PSA PSA Tammy Hanna, Reg Reg Indra Resendiz, [facility] Cathy Lopez, PSA PSA ml4 Jamar Choi Shannon, RN RN sls1 Vj Norman, DO cs11 Yulia Chavez LPN LPN slm King, Margaret RN RN mk4 Nela Kessler Robert rn1 Zoltan AlmanzaRN RN nn1 Keke Nunez MD MD fg Stanton, Hillary, Reg Reg hs2 Corrections: (The following items were deleted from the chart) 16:24 15:50 Subjective: ca ca 17:30 15:50 Subjective: The patients chief complaint is Pt agitated upon presentation and ca required restraints. Was intoxicated and manic. Delusions are unknown, unable to evaluate. Patient's mood is anxious, elevated, hallucinations are unknown, unable to evaluate. Spoke with pt's regarding circumstances that required police transporting pt to ED last night. She reports pt has been decompensating Subjective: The patients chief complaint is Pt agitated upon presentation and required restraints. Was intoxicated and manic. Delusions are unknown, unable to evaluate. Patient's mood is anxious, elevated, hallucinations are unknown, unable to evaluate. Spoke with pt's regarding circumstances that required police transporting pt to ED last night. She reports pt has been decompensating ca 17:51 17:43 General: Appears mk4 mk4 Chart Complete MTDD
--- NOTE | 2016-07-14 19:06 | EDDOCDS ---
Physician Documentation [facility] Name: Curt Hardwick Age: 40 yrs Sex: Male : 1975 Arrival Date: 07/12/2016 Time: 03:26 Bed OBSERVATION Private MD: Disposition: 07/12/16 17:57 Hospitalization ordered by Julian Salcido for Inpatient Admission. Preliminary diagnosis is Bipolar disorder. - Bed requested for Admit. - Status is Inpatient Admission. mk4 - Condition is Stable. - Problem is new. - Symptoms have improved. Historical: - Allergies: no known allergies; - Home Meds: 1. Synthroid 125 mcg Oral tab 1 tab once daily (Last dose: 07/11/2016 06:00) 2. Effexor Oral 300 mg every morning (Last dose: 07/11/2016 09:00) 3. clonidine HCl 0.1 mg Oral tab 1 tab daily 4. lorazepam 1 mg Oral tab daily (Last dose: 07/11/2016 09:00) 5. [place] Carbonate 950 Oral 1 cap pm (Last dose: 07/11/2016 21:00) 6. clonidine HCl 0.3 mg Oral tab 1 tab nightly (Last dose: 07/11/2016 21:00) 7. lorazepam 1 mg Oral tab 1 tab nightly (Last dose: 07/11/2016 21:00) - Social history: No barriers to communication noted, The patient speaks fluent Icelandic, Smoking status: Patient uses tobacco products, current some day smoker. - Family history: Not pertinent. - : The pt / caregiver states he / she is not on anticoagulants. Home medication list is obtained from family members. - Exposure Risk Screening:: None identified. Vital Signs: 07/12 03:40 slm 04:10 BP 129 / 80; Pulse 92; Resp 18; Pulse Ox 97% ; Pain 0/10; slm 04:25 BP 124 / 77; Pulse 92; Resp 16; Temp 97.6(TE); Pulse Ox 99% on R/A; slm 04:40 BP 137 / 90; Pulse 90; Resp 16; Pulse Ox 97% ; slm 04:58 BP 133 / 78; Pulse 94; Resp 16; Pulse Ox 97% ; slm 05:10 BP 122 / 71; Pulse 82; Resp 18; Pulse Ox 94% ; slm 05:26 BP 119 / 69; Pulse 69; Resp 18; Pulse Ox 93% ; slm 05:34 BP 136 / 87; Pulse 67; Resp 18; Pulse Ox 100% on R/A; slm 09:05 BP 184 / 101; Pulse 118; Resp 22; mk4 09:15 BP 162 / 100; Pulse 117; Resp 18; Pulse Ox 100% on R/A; mk4 09:30 BP 144 / 94; Pulse 102; Resp 18; Pulse Ox 100% ; mk4 09:43 BP 158 / 96; Pulse 102; Resp 16; Pulse Ox 100% on R/A; mk4 10:00 BP 140 / 92; Pulse 99; Resp 18; Pulse Ox 100% ; mk4 10:15 BP 154 / 93; Pulse 99; Resp 16; Temp 97.8(T); Pulse Ox 100% ; mk4 10:30 BP 149 / 96; Pulse 106; Resp 18; Pulse Ox 100% ; mk4 10:45 BP 155 / 96; Pulse 95; Resp 18; Pulse Ox 100% on R/A; mk4 11:00 BP 160 / 63; Pulse 95; Resp 18; Pulse Ox 99% on R/A; mk4 11:15 BP 175 / 83; Pulse 106; Resp 18; Pulse Ox 100% on R/A; mk4 11:30 BP 141 / 97; Pulse 99; Resp 18; Pulse Ox 99% on R/A; mk4 11:45 BP 144 / 91; Pulse 99; Resp 18; mk4 12:00 BP 146 / 93; Pulse 89; Resp 18; Pulse Ox 99% on R/A; mk4 12:15 BP 199 / 93; Pulse 86; Resp 18; Pulse Ox 100% on R/A; mk4 12:30 BP 164 / 92; Pulse 92; Resp 18; Pulse Ox 100% on R/A; mk4 12:45 BP 159 / 92; Pulse 87; Resp 18; Pulse Ox 100% on R/A; mk4 13:00 BP 143 / 95; Pulse 87; Pulse Ox 99% on R/A; mk4 13:15 BP 144 / 93; Pulse 76; Resp 18; Pulse Ox 100% on R/A; mk4 13:30 BP 169 / 99; Pulse 86; Resp 18; Pulse Ox 99% on R/A; mk4 14:15 BP 162 / 100; Pulse 88; Resp 18; Pulse Ox 99% on R/A; mk4 17:43 BP 138 / 86; Pulse 92; Resp 20; Temp 97.2(T); Pulse Ox 99% on R/A; mk4 03:40 pt combative refused slm MDM: 03:32 -Haloperidol Lactate 5 mg IM once ordered. sls1 03:33 diphenhydrAMINE 50 mg IM once ordered. sls1 04:17 Consult PFS/PSA/Electronics Research Engineer ordered. cs11 04:17 Consult PFS/PSA/Electronics Research Engineer: Patient's case requires discussion with on-call cs11 Psychiatrist ordered. 04:17 PSA/PFS to call Nursing Computerized Mill Mill Recorder, to enter patient data on [facility] Safe Act if patient cs11 involuntarily admitted or transferred for SI or HI ordered. 04:17 Confirm accurate psychiatric medication list and times of last dosage ordered. cs11 04:17 Detain Pt Until Medically/PFS Cleared ordered. cs11 04:17 Restraints, Adult: Mechanical - 4 points up to 1 hr (poses imminent danger of harming cs11 others). May use manual restraints to secure restraint devices. Pt. monitoring per RN policy. ordered. 04:18 Acetaminophen Level Ordered. EDMS 04:19 Basic Metabolic Profile Ordered. EDMS 04:19 Complete Blood Count Ordered. EDMS 04:19 Drug Eval Toxicology ED Only Ordered. EDMS 04:19 Ethyl Alcohol (ethanol) Ordered. EDMS 04:19 Liver Profile Ordered. EDMS 04:19 Salicylate Level Ordered. EDMS 04:19 Thyroid Stimulating Hormone Ordered. EDMS 04:19 Valproic Acid (depakote) Ordered. EDMS 04:19 Ammonia ([place] Tube on Ice, Not [place]a Green) Ordered. EDMS 04:25 OLANZapine 10 mg IM once ordered. cs11 07:52 Financial registration complete. hs2 07:53 PENDING SALE TO [facility] Payment Agreement was scanned into [employer] and attached to record. hs2 08:54 PSA/PFS to call Nursing Computerized Mill Mill Recorder, to enter patient data on [place] Safe Act if patient mk4 involuntarily admitted or transferred for SI or HI complete. 09:05 diphenhydrAMINE 25 mg IM once ordered. mk4 09:05 -Haloperidol Lactate 5 mg IM once ordered. mk4 09:06 Restraints, Adult: Chemical - Meds as ordered (poses imminent danger of harming fg others). May use manual restraints to ensure safe admin. of meds. Pt. monitoring for min. of 2 hrs per RN policy. ordered. 09:06 Restraints, Adult: Mechanical - 4 points up to 1 hr (poses imminent danger of fg interfering with medical interventions). May use manual restraints to secure restraint devices. Pt. monitoring per RN policy. ordered. 10:23 Consult PFS/PSA/Electronics Research Engineer: Patient's case requires discussion with on-call mk4 Psychiatrist complete. 10:23 Consult PFS/PSA/Electronics Research Engineer complete. mk4 11:08 REGULAR DIET PLASTIC CHUA+DIET ordered. EDMS 16:35 Haloperidol 5 mg IVP once; until desired response ordered. fg 16:35 diphenhydrAMINE 25 mg IM once ordered. fg 17:15 REGULAR DIET PLASTIC CHUA+DIET ordered. EDMS 17:49 REGULAR DIET ordered. EDMS 17:51 Admit to IMHU: ordered. EDMS 17:54 [facility] Legal paperwork was scanned into [employer] and attached to record. ml4 07/13 07:43 T-Sheet-- Draft Copy was scanned into [employer] and attached to record. gb Administered Medications: 07/12 03:34 Drug: -Haloperidol Lactate 5 mg [haloperidol lactate 5 mg/mL injection solution (1 mL)] sls1 Route: IM; Site: left vastus lateralis; 03:34 Drug: diphenhydrAMINE 50 mg [diphenhydramine 50 mg/mL injection solution (1 mL)] Route: sls1 IM; Site: right vastus lateralis; 04:43 Follow up: Response: No significant change. [facility] 04:53 Drug: OLANZapine 10 mg Route: IM; Site: left vastus lateralis; [facility] 05:28 Follow up: Response: Anxiety is improved [facility] 09:05 Drug: diphenhydrAMINE 25 mg [diphenhydramine 50 mg/mL injection solution (0.5 mL)] mk4 Route: IM; Site: right vastus lateralis; 09:05 Drug: -Haloperidol Lactate 5 mg [haloperidol lactate 5 mg/mL injection solution (1 mL)] mk4 Route: IM; Site: right vastus lateralis; Signatures: Dispatcher [employer] EDMS Tammy Vieira, Reg Reg gb Cathy Lopez, PSA PSA ml4 Melissa Alberto RN RN sls1 Vj Norman DO DO cs11 Yulia Chavez LPN AIR DEODORIZER SERVICER Selam Ramirez RN RN mk4 Keke Nunez MD MD fg Stanton, Hillary, Reg Reg hs2 The chart was reviewed and I authenticate all verbal orders and agree with the evaluation and treatment provided.Corrections: (The following items were deleted from the chart) 09:06 09:06 Restraints, Adult: Mechanical - 4 points up to 1 hr (poses imminent danger of mk4 self-harm). May use manual restraints to secure restraint devices. Pt. monitoring per RN policy. ordered. mk4 Attachments: 07:53 PENDING SALE TO [facility] Payment Agreement hs2 07/13 07:43 T-Sheet-- Draft Copy gb Chart Complete MTDD
[2016-07-14] MEDS: OLANZapine ORAL DISINTEGRATING TAB 5MG PO PRN (19:26)
[2016-07-14] MEDS: LITHIUM CARBONATE 450 MG **CR** TAB PO SCH (20:41)
[2016-07-14] MEDS: QUEtiapine FUMARATE 100 MG TAB PO SCH (20:41)
--- NOTE | 2016-07-15 01:47 | IPN ---
DATE OF SERVICE: 07/14/2016 TREATMENT: This is third day of inpatient hospital admission for Mr. Hardwick. He is seen and his current treatment reviewed. He reports today that he is doing better. He slept well and no new problems noted. He says he has been attending the group and benefiting from same and that he has been taking his medication. No reported side effects. CURRENT MEDICATIONS: - lithium carbonate extended release 900 mg orally at bedtime - Effexor XR 300 mg daily - clonidine 0.1 mg daily - levothyroxine 0.125 mg daily - quetiapine 100 mg orally at bedtime In addition to medication management, he receives therapeutic programming. OBSERVATION: He is noted to be calm, cooperative, interacting normally with his peers. No abnormal movements are noted. His speech is fluent. Thought process is coherent and goal directed. No psychotic features are evident. He describes his mood as improving, although still says that he still occasionally has some depressive features. He denies active suicidal thoughts, plan, or intent. ASSESSMENT: Patient responding positively to medications; however, he requires further inpatient stabilization. PLAN: He will continue on the current treatment with ongoing reviews. YULI
[2016-07-15] MEDS: OLANZapine ORAL DISINTEGRATING TAB 5MG PO PRN ×3 (03:15→13:43)
[2016-07-15] MEDS: LEVOTHYROXINE 0.125 MG TAB (125 MCG) PO SCH (06:16)
[2016-07-15 06:37] VITALS: BP 152/90
[2016-07-15] MEDS: MULTIVITAMINS/MINERALS THERAP 1 TAB PO SCH (07:46)
[2016-07-15] MEDS: FOLIC ACID 1 MG TAB PO SCH (07:46)
[2016-07-15] MEDS: THIAMINE 100 MG TAB PO SCH (07:46)
[2016-07-15] MEDS: cloNIDine 0.1 MG TAB PO SCH ×2 (07:46→21:01)
[2016-07-15] MEDS: NICOTINE 14 MG/24 HR TRANSDERMAL TD SCH (07:46)
[2016-07-15] MEDS: VENLAFAXINE **XR** 75MG CAPSULE PO SCH (07:46)
[2016-07-15 09:33] VITALS: BP 152/90
[2016-07-15 18:45] VITALS: BP 138/83
[2016-07-15] MEDS: QUEtiapine FUMARATE 100 MG TAB PO SCH (21:00)
[2016-07-15] MEDS: LITHIUM CARBONATE 450 MG **CR** TAB PO SCH (21:01)
--- NOTE | 2016-07-15 23:55 | IPN ---
DATE OF SERVICE: 07/15/2016 TREATMENT: The patient is seen on his 4th day of inpatient hospital admission and his treatment reviewed. CURRENT MEDICATIONS: - lithium carbonate extended release 900 mg orally at bedtime - Effexor XR 200 mg daily - quinidine 0.1 mg daily - levothyroxine 0.125 mg daily - quetiapine 100 mg orally at bedtime. He also is provided with individual, group and activity therapies. He presents with no new problems today, and reports that he is doing well on the current medications and that he feels that his depression is getting better; however, he reports of low energy level. He says he currently has no thoughts of harming himself. OBSERVATION: VITAL SIGNS: Blood pressure slightly elevated at 152/90, pulse 88 , respirations 16 and temperature 97.4. He is calm, cooperative, appropriately dressed and groomed. Speech is fluent. Thought process coherent. No evidence of delusions or hallucination. Mood improving; however, he still experiences depressive features such as low energy level. He denies active suicidal, homicidal thoughts , plan or intent. ASSESSMENT: The patient continues to respond to treatment but will require further stabilization, as he still presents with some depressive features. No evidence of medication adverse event. PLAN: Current treatment will be continued. MTDD
[2016-07-16] MEDS: LEVOTHYROXINE 0.125 MG TAB (125 MCG) PO SCH (06:16)
[2016-07-16 06:31] VITALS: BP 132/89
[2016-07-16] MEDS: VENLAFAXINE **XR** 75MG CAPSULE PO SCH (08:32)
[2016-07-16] MEDS: cloNIDine 0.1 MG TAB PO SCH ×2 (08:32→20:57)
[2016-07-16] MEDS: MULTIVITAMINS/MINERALS THERAP 1 TAB PO SCH (08:33)
[2016-07-16] MEDS: NICOTINE 14 MG/24 HR TRANSDERMAL TD SCH (08:33)
[2016-07-16] MEDS: FOLIC ACID 1 MG TAB PO SCH (08:33)
[2016-07-16 11:42] VITALS: BP 132/84
[2016-07-16] MEDS ORDERED: BENZTROPINE 1 MG TAB PO PRN (12:00)
--- NOTE | 2016-07-16 18:23 | IPN ---
DATE: 07/16/2016 Treatment day number five. CURRENT MEDICATIONS: - lithium carbonate extended release 900 mg orally at bedtime - Effexor XR 200 mg daily - clonidine 0.1 mg a.m. and 0.3 mg p.m. - levothyroxine 0.125 mg daily - quetiapine 100 mg orally at bedtime He is seen today and his treatment reviewed. He presents today with no new problems. He reports taking his medication and feeling better, although still reports some depressive symptoms, but denies active suicidal thoughts, plan or intent. OBSERVATION: VITAL SIGNS: Blood pressure 132/89, pulse 112, respirations 20 and temperature 97.1. So far no evidence of alcohol-related withdrawals. He has been noted to exhibited no features suggestive of psychosis. His mood continues to show improvement. He denies suicidal, homicidal thoughts, plan or intent. ASSESSMENT: The patient continues to respond to treatments, but request further stabilization. PLAN: Will continue the current treatment and followup with lithium level in the morning. YULI
[2016-07-16 18:33] VITALS: BP 134/80
[2016-07-16] MEDS: LITHIUM CARBONATE 450 MG **CR** TAB PO SCH (20:56)
[2016-07-16] MEDS: QUEtiapine FUMARATE 100 MG TAB PO SCH (20:57)
[2016-07-17 06:06] VITALS: BP 145/91
[2016-07-17] MEDS: LEVOTHYROXINE 0.125 MG TAB (125 MCG) PO SCH (06:14)
[2016-07-17 07:57] VITALS: BP 130/60
[2016-07-17 08:00] VITALS: BP 130/60
[2016-07-17] MEDS: FOLIC ACID 1 MG TAB PO SCH (08:00)
[2016-07-17] MEDS: NICOTINE 14 MG/24 HR TRANSDERMAL TD SCH (08:00)
[2016-07-17] MEDS: VENLAFAXINE **XR** 75MG CAPSULE PO SCH (08:00)
[2016-07-17] MEDS: cloNIDine 0.1 MG TAB PO SCH (08:00)
[2016-07-17] MEDS: MULTIVITAMINS/MINERALS THERAP 1 TAB PO SCH (08:00)
[2016-07-17] MEDS: OLANZapine ORAL DISINTEGRATING TAB 5MG PO PRN (09:39)
[2016-07-17] MEDS ORDERED: NICO14PA TD (10:05)
[2016-07-17] MEDS ORDERED: QUET1TAB8 PO ×2 (11:43→12:47)
[2016-07-17 11:59] VITALS: BP 138/70
--- NOTE | 2016-07-17 15:53 | MHDS ---
DATE OF ADMISSION: 07/12/2016 DATE OF DISCHARGE: 07/17/2016 HISTORY: This is the fourth [facility] inpatient mental health admission for this 40-year-old with a history of bipolar disorder who was brought by police to the emergency department after his called to report that he had been active bizarre with manic-type behavior, has been religiously preoccupied and verbally aggressive. Additional information obtained from the patient's indicated that he had been decompensating since Bessie and had an emergency visit with his psychiatrist a day prior to the current emergency department visit. The psychiatrist reportedly recommended as-needed Haldol and Seroquel. However, the patient refused to take the medication, although he did take his regular ones. Reportedly, he had not been sleeping well or eating normally. The night prior to his emergency room visit, his observed him talking loudly about feeling good while rambling irrelevantly about mathematic problems and [place]. Later that night, she noticed three empty wine bottles beside the patient, the contents of which she suspected he had consumed. During his assessment by emergency room personnel, he became quite threatening and combative, and as a result was administered emergency intramuscular injection of Haldol and placed in four-point restraint. In the interview on the unit, the patient remembered having consumed some wine but was unable to recall other details including the reported behavior in the emergency department. PAST PSYCHIATRIC HISTORY: Mr. Hardwick has a lengthy history of psychiatric problems and has previously been diagnosed with bipolar and posttraumatic stress disorders. He has three previous [facility] ([facility]) inpatient psychiatric admissions, 08/09/2004 through 08/16/2004, 05/18/2014 through 05/24/2014, and 11/15/2014 through 11/19/2014. In addition, he had one emergency room visit on 04/08/2015 in relation to suicidal ideation and a manic episode but was transferred to [facility] due to non-availability of bed space. His past symptoms have included mood liability, grandiosity, elevated psychomotor activity, pressured speech, exaggerated startle response, hypervigilance, intrusive thoughts, and nightmares. He previously has been treated with Latuda, Depakote, and Effexor. His medications on admission included: - Effexor 300 mg orally daily - clonidine 0.1 mg in the morning and 0.3 mg at bedtime - lithium carbonate ER 900 mg at bedtime - lorazepam on as-needed basis - He also is prescribed Synthroid 125 mcg daily for hypothyroidism. In addition to his psychiatric history, Mr. Hardwick has notable alcohol use problems and also reportedly had used cannabis. PAST MEDICAL HISTORY: Significant for hypothyroidism for which he takes Synthroid. HOSPITAL COURSE: On admission, he was noted to be disheveled and his breath smelled of alcohol. He presented with no gross tremors or significant other alcohol-related withdrawals. No speech impediment was noted and his thought process was coherent and goal-directed. No delusions or ideas of reference noted and he denied any form of hallucination. His mood was noted to be dysphoric but he denied thoughts, plan, or intent of suicide or homicide. His judgment was noted to be impaired and insight limited. ADMISSION DIAGNOSES: 1. Bipolar one disorder, current episode manic. 2. Alcohol use disorder. TREATMENT: He was continued on his home medications in addition to being provided with psychotherapeutic interventions that included group, individual, and activity therapies. The patient was noted to be compliant with his treatment, accepting his medications and participating actively in therapeutic programs. He had no notable incidents during his stay on the unit and interacted normally with his peers. The patient progressively showed improvement and subsequently reported improved mood, denying any further thoughts, plan or intent of suicide. No withdrawal features related to alcohol, as he was also placed on appropriate clinical institute withdrawal assessment (CIWA) protocol. MENTAL STATUS EXAMINATION ON DISCHARGE: The patient is noted to be calm, cooperative, appropriately dressed and groomed. No abnormal involuntary movements. Speech normal. Thought process: Coherent and goal-directed. No delusions or ideas of reference. He denied hallucinations and was not observed responding to internal stimuli. His mood was noted to be euthymic. Affect appropriate. He denies suicidal thoughts, plan or intent. Overall, he was noted to be stable. His lithium level on discharge was 0.8 which is within normal range. PLAN: Patient discharged with appropriate followup arrangement made with his [place] hospital. DISCHARGE MEDICATIONS: - lithium ER 900 mg orally at bedtime - venlafaxine 300 mg orally daily - clonidine 0.1 mg in the morning and 0.3 mg at bedtime - levothyroxine 0.125 mg daily - quetiapine 100 mg orally at bedtime Discharge plan discussed with the patient and he demonstrated understanding and was in agreement. YULI
== END 2016-07-17 14:35 | disposition home or self-care (01) | DRG 885 ==
LOC: M ED 03:26 → M PSY 18:05
PROVIDERS: ADMIT Psychiatry & Neurology Psychiatry; ATTEND Psychiatry & Neurology Psychiatry
DX: F30.9 Manic episode, unspecified (principal); H46.9 Unspecified optic neuritis; F10.20 Alcohol dependence, uncomplicated; E03.9 Hypothyroidism, unspecified; L98.9 Disorder of the skin and subcutaneous tissue, unspecified

== ENCOUNTER 2019-09-23 16:04 | Emergency (ER) | payer MEDICARE, OTHER ==
[~2019-09-23] VITALS: Ht 182.9 cm; Wt 88.6 kg
[~2019-09-23 16:04] MED LIST changes: +AMPH1CAP9 PO; -AMPH5CAP PO; +CLON-412 PO; -EFFE150C PO; +EFFE150C2 PO; +EFFE75CA2 PO; -EFFE75CA75 PO; +FOLI1TAB11 PO; -FOLI1TAB2 PO; +LITH45TASA PO; +LORA1TAB4 PO; +MELO15TA28 PO; -MELO15TA4 PO; +NICO14PA TD; +QUET100T2 PO; +SYNT125T PO; +TEST200I14 IM; +TRAZ-252 PO; -TRAZ50TA4 PO
[2019-09-23] MEDS ORDERED: LORA1TAB4 PO (16:22)
[2019-09-23] MEDS ORDERED: TRAM1CAP17 PO (16:25)
[2019-09-23 17:03] LABS: HEMATOCRIT 53.9 % (42.0-52.0); HEMOGLOBIN 17.5 g/dl (13.5-17.5); MEAN CORPUSCULAR HEMOGLOBIN 30.5 pg (27.0-33.0); MEAN CORPUSCULAR HGB CONC 32.5 g/dl (32.0-36.5); MEAN CORPUSCULAR VOLUME 93.9 fl (80.0-96.0); PLATELET COUNT, AUTOMATED 295 10^3/uL (150-450); RED BLOOD COUNT 5.74 10^6/uL (4.30-6.10); WHITE BLOOD COUNT 10.7 10^3/uL (4.0-10.0)
[2019-09-23 17:29] LABS: ACETAMINOPHEN LEVEL < 2.0 UG/ML (10.0-30.0); ALBUMIN 3.9 GM/DL (3.2-5.2); ALT/SGPT 68 U/L (12-78); BILIRUBIN,DIRECT 0.2 MG/DL (0.0-0.2); BILIRUBIN,TOTAL 0.4 MG/DL (0.2-1.0); BLOOD UREA NITROGEN 11 MG/DL (7-18); CALCIUM LEVEL 8.8 MG/DL (8.5-10.1); CARBON DIOXIDE LEVEL 27 MEQ/L (21-32); CHLORIDE LEVEL 101 MEQ/L (98-107); CREATININE FOR GFR 1.02 MG/DL (0.70-1.30); ETHYL ALCOHOL (ETHANOL) 0.179 % (0.000-0.010); GLOMERULAR FILTRATION RATE > 60.0 (>60); GLUCOSE, FASTING 73 MG/DL (70-100); SALICYLATE LEVEL < 1.7 MG/DL (5.0-30.0); SODIUM LEVEL 136 MEQ/L (136-145); TOTAL PROTEIN 7.9 GM/DL (6.4-8.2)
--- NOTE | 2019-09-23 17:43 | ECGEPIP ---
[facility] - ED Test Date: 2019-09-23 Pat Name: LORRAINE CHAMBERS Department: Room: - Gender: Male Practice Lead: GAETANO : 1975 Requested By: Avani Ospina Order Number: [id number] Reading MD: Avani Ospina Measurements Intervals Anderson Rate: 102 P: 60 MD: 161 QRS: 7 QRSD: 107 T: 85 QT: 338 QTc: 441 Interpretive Statements SINUS TACHYCARDIA NONSPECIFIC T-WAVE ABNORMALITY ABNORMAL RHYTHM ECG INCREASED RATE 07/13/16 Electronically Signed on 09-23-2019 17:42:32 EDT by Avani Ospina
[2019-09-23 17:57] LABS: AMPHETAMINES LEVEL URINE NEGATIVE (NEGATIVE); BARBITURATES URINE NEGATIVE (NEGATIVE); BENZODIAZEPINES URINE NEGATIVE (NEGATIVE); CANNABINOIDS URINE NEGATIVE (NEGATIVE); COCAINE METABOLITE URINE NEGATIVE (NEGATIVE); METHADONE URINE NEGATIVE (NEGATIVE); OPIATES URINE NEGATIVE (NEGATIVE); PHENCYCLIDINE URINE NEGATIVE (NEGATIVE)
[2019-09-23 21:00] VITALS: BP 148/79
== END 2019-09-23 21:40 | disposition home or self-care (01) ==
LOC: M ED 16:04
DX: F10.129 Alcohol abuse with intoxication, unspecified (principal); Y90.0 Blood alcohol level of less than 20 mg/100 ml; F43.10 Post-traumatic stress disorder, unspecified; Z79.899 Other long term (current) drug therapy
CPT/HCPCS: 36415; 80048; 80076; 80178; 80307; 84443; 85027; 93005; 99284; G0480

== ENCOUNTER 2019-09-24 12:01 | Emergency (ER) | payer MEDICARE, OTHER ==
[~2019-09-24 12:01] MED LIST changes: +TRAM1CAP17 PO
[2019-09-24 15:06] VITALS: BP 141/72
== END 2019-09-24 15:00 | disposition home or self-care (01) ==
LOC: M ED 12:01
DX: F43.20 Adjustment disorder, unspecified (principal); F43.10 Post-traumatic stress disorder, unspecified; Z79.899 Other long term (current) drug therapy

== ENCOUNTER 2019-09-24 15:53 | Emergency (ER) | payer MEDICARE, OTHER ==
[2019-09-24 16:17] VITALS: BP 144/82
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
== END 2019-09-24 17:40 | disposition home or self-care (01) ==
LOC: M ED 15:53
DX: F43.20 Adjustment disorder, unspecified (principal); F43.10 Post-traumatic stress disorder, unspecified; Z79.899 Other long term (current) drug therapy
CPT/HCPCS: 99284; G0480

== ENCOUNTER 2022-08-07 18:27 | Emergency (ER) | payer MEDICARE, OTHER ==
[~2022-08-07] VITALS: Ht 172.7 cm; Wt 87.3 kg
[2022-08-07 18:28] VITALS: BP 139/93
[2022-08-07] MEDS ORDERED: ALLO10TA PO (18:46)
[2022-08-07] MEDS ORDERED: CRES5TAB PO (18:46)
== END 2022-08-08 01:26 | disposition left against medical advice (07) ==
LOC: M ED 18:27
DX: Z53.21 Procedure and treatment not carried out due to patient leaving prior to being seen by health care provider (principal)